=== PATIENT | male | born 1935 | race Caucasian/White ===

== ENCOUNTER → 2018-02-23 | Outpatient (CLI) | payer MEDICARE, OTHER ==
[~2018-02-23] MED LIST: BAYER CHEWABLE81 MG PO; COZAAR 25 MG TA25 M1 PO; FLONASE 0.05%50 MCG NASAL; GLUCOPHAGE XR500 MG PO; IMDUR 30 MG TAB30 M1 PO; LASIX 40 MG TAB40 M2 PO; LESCOL XL80 MG; LEVAQUIN 750 M750 MG PO; LEVEMIR SUBQ; LEVOCETIRIZINE D5 MG PO; LISINOPRIL20 MG PO; LIVALO2 MG PO; LOPRESSOR25 PO; METFORMIN HCL500 M2 PO; NITROSTAT0.4 M1 SL; OCUFLOX10 ML OTIC; PROTONIX40 M1 PO; SERTRALINE HCL100 MG; SINGULAIR 10 MG10 M1 PO; TOPROL XL50 MG PO; TRADJENTA5 MG PO; TYLENOL EXTRA500 MG; VICODIN 5-5001 EACH PO; ZOFRAN ODT4 MG DISSOLVE; ZOLOFT25 MG PO
== END ==
LOC: M.ULTRA 10:55
DX: N18.3 Chronic kidney disease, stage 3 (moderate) (principal); E78.5 Hyperlipidemia, unspecified; I25.10 Atherosclerotic heart disease of native coronary artery without angina pectoris

== ENCOUNTER 2018-04-20 14:38 | Inpatient (IN) | payer MEDICARE, OTHER ==
[~2018-04-20] VITALS: Ht 167.6 cm; Wt 64.0 kg
[~2018-04-20 14:38] MED LIST changes: -LASIX 40 MG TAB40 M2 PO; -LEVAQUIN 750 M750 MG PO; -LEVEMIR SUBQ; -PROTONIX40 M1 PO; -SINGULAIR 10 MG10 M1 PO; -TRADJENTA5 MG PO; -ZOFRAN ODT4 MG DISSOLVE
[2018-04-20 14:49] VITALS: BP 162/64
[2018-04-20] MEDS ORDERED: TRADJENTA5 MG PO (14:59)
[2018-04-20] MEDS ORDERED: SINGULAIR 10 MG10 M1 PO (15:00)
[2018-04-20] MEDS ORDERED: PROTONIX40 M1 PO (15:00)
[2018-04-20] MEDS ORDERED: LEVEMIR SUBQ (15:02)
[2018-04-20 15:16] LABS: ANION GAP 7 mmol/L (7-16); BUN 27 mg/dL (7-18); CALCIUM 8.6 mg/dL (8.5-10.1); CHLORIDE 101 mmol/L (98-107); CO2 23 mmol/L (21-32); CREATININE 1.7 mg/dL (0.6-1.3); GLUCOSE 369 mg/dL (70-99); SODIUM 131 mmol/L (136-145); WBC 5.2 thou/uL (4.0-11.0)
[2018-04-20 15:17] LABS: APTT 27.6 Seconds (25.0-31.3); PROTIME 9.9 Seconds (9.20-11.50)
[2018-04-20 15:19] LABS: HEMATOCRIT 33.6 % (42.0-52.0); MCH 32.2 pg (26.0-34.0); MCHC 32.8 g/dL (28.0-37.0); MCV 98.2 fL (80.0-100.0); MPV 10.2 fl. (7.2-11.1); NUCLEATED RBCS 0 /100WBC; PLATELET COUNT* 237 thou/uL (150-400); RBC 3.42 mil/uL (4.50-6.00); RDW-CV 15.5 % (10.5-14.5)
[2018-04-20 15:20] LABS: POTASSIUM 5.9 mmol/L (3.5-5.1)
[2018-04-20 15:27] LABS: ALBUMIN 2.7 g/dL (3.4-5.0); ALKALINE PHOSPHATASE 793 U/L (46-116); NT-PRO BRAIN NAT PEPTIDE 2421 pg/mL (<300); SGOT 129 U/L (15-37); SGPT 153 U/L (30-65); TOTAL BILIRUBIN 8.9 mg/dL (<0.1-1.0); TOTAL PROTEIN 6.7 g/dL (6.4-8.2); TROPONIN-I LEVEL <0.06 ng/mL (<0.06)
[2018-04-20 16:13] LABS: ABSOLUTE BASOPHILS 0.1 thou/uL (0.0-0.2); ABSOLUTE MONOCYTES 0.2 thou/uL (0.0-1.2); ABSOLUTE NEUTROPHILS 3.9 thou/uL (1.6-8.1)
[2018-04-20 16:16] LABS: PLATELET ESTIMATE ADEQUATE
[2018-04-20 16:18] LABS: URINE BLOOD NEGATIVE (Negative); URINE CLARITY CLEAR; URINE COLOR YELLOW; URINE GLUCOSE-RANDOM 3+ (Negative); URINE KETONES NEGATIVE (Negative); URINE LEUKOCYTES-REFLEX NEGATIVE (Negative); URINE NITRITE-REFLEX NEGATIVE (Negative); URINE PROTEIN NEGATIVE (Negative)
[2018-04-20 16:19] LABS: ICTOTEST (BILI CONFIRMATORY) Positive (Negative); URINE BILIRUBIN 2+ (Negative)
[2018-04-20 17:45] VITALS: BP 157/48
[2018-04-20 18:10] VITALS: BP 162/57
[2018-04-20 20:00] VITALS: BP 138/52
[2018-04-21 04:09] LABS: ABSOLUTE BASOPHILS 0.1 thou/uL (0.0-0.2); BASOPHILS 0.9 %; EOSINOPHILS 0.4 %; HEMOGLOBIN 10.3 gm/dL (14.0-18.0); MPV 9.1 fl. (7.2-11.1); NUCLEATED RBCS 0 /100WBC; RBC 3.22 mil/uL (4.50-6.00)
[2018-04-21 04:11] LABS: ABSOLUTE LYMPHOCYTES 3.9 thou/uL (0.8-5.3); ABSOLUTE MONOCYTES 0.2 thou/uL (0.0-1.2); ABSOLUTE NEUTROPHILS 1.6 thou/uL (1.6-8.1); HEMATOCRIT 30.8 % (42.0-52.0); LYMPHOCYTES 68.3 %; MCHC 33.5 g/dL (28.0-37.0); MCV 95.6 fL (80.0-100.0); MONOCYTES 3.1 %; PLATELET COUNT* 213 thou/uL (150-400); POLYS 27.3 %; RDW-CV 15.1 % (10.5-14.5); WBC 5.8 thou/uL (4.0-11.0)
[2018-04-21 04:31] LABS: CALCIUM 8.7 mg/dL (8.5-10.1); CREATININE 1.6 mg/dL (0.6-1.3); POTASSIUM 5.3 mmol/L (3.5-5.1)
[2018-04-21 08:15] VITALS: BP 150/58
[2018-04-21 09:06] LABS: ALBUMIN 2.5 g/dL (3.4-5.0); DIRECT BILIRUBIN 6.6 mg/dL (<0.1-0.3); TOTAL BILIRUBIN 7.6 mg/dL (<0.1-1.0); TOTAL PROTEIN 5.4 g/dL (6.4-8.2)
--- NOTE | 2018-04-21 10:52 | EKG ---
[place] [address] ELECTROCARDIOGRAM REPORT Name: OSIEL HUSSEIN Room: [address] ADM IN [facility]#: [id number] Admission: 04/20/18 Attend Phys: Yeison Jung MD Discharge: Date of : 33 Report #: [id number] THIS REPORT FOR: //name// [facility] ED Test Date: 2018-04-20 Test Time: 14:52:57 Pat Name: OSIEL HUSSEIN Department: Room: [facility] Gender: Arts [employer] Sciences Dean: Elizabeth TERRY : 1935 Requested By: Taco Parsons Order Number: [id number] MD: Live Fitzgerald Measurements Intervals [place] Rate: 64 P: -5 MD: 154 QRS: 19 QRSD: 95 T: 88 QT: 410 QTc: 423 Interpretive Statements Sinus rhythm Anterior infarct, old Minimal ST depression, lateral leads Compared to ECG 10/30/2014 04:01:01 Myocardial infarct finding now present Left ventricular hypertrophy no longer present ST (T wave) deviation still present Electronically Signed On 04-21-2018 10:51:53 CDT by Live Fitzgerald [email or web address] <ELECTRONICALLY SIGNED> By: Live Fitzgerald MD, [facility] 04/21/18 1051 1452 1452 Live Fitzgerald MD, [facility] /EPI
[2018-04-21 16:47] VITALS: BP 172/72
[2018-04-21 20:00] VITALS: BP 163/63
[2018-04-22 05:00] LABS: ABSOLUTE NEUTROPHILS 1.5 thou/uL (1.6-8.1); BASOPHILS 0.4 %; HEMOGLOBIN 10.8 gm/dL (14.0-18.0); RBC 3.36 mil/uL (4.50-6.00)
[2018-04-22 05:03] LABS: ABSOLUTE LYMPHOCYTES 3.3 thou/uL (0.8-5.3); ABSOLUTE MONOCYTES 0.2 thou/uL (0.0-1.2); EOSINOPHILS 0.3 %; HEMATOCRIT 31.8 % (42.0-52.0); MCH 32.2 pg (26.0-34.0); MCHC 34.1 g/dL (28.0-37.0); MCV 94.6 fL (80.0-100.0); MONOCYTES 3.9 %; MPV 9.9 fl. (7.2-11.1); NUCLEATED RBCS 0 /100WBC; PLATELET COUNT* 212 thou/uL (150-400); POLYS 30.4 %; RDW-CV 15.3 % (10.5-14.5)
[2018-04-22 05:37] LABS: ALBUMIN 2.5 g/dL (3.4-5.0); CALCIUM 8.9 mg/dL (8.5-10.1); CREATININE 1.6 mg/dL (0.6-1.3); POTASSIUM 5.2 mmol/L (3.5-5.1); TOTAL PROTEIN 5.9 g/dL (6.4-8.2)
[2018-04-22 07:55] VITALS: BP 158/64
[2018-04-22 08:51] VITALS: BP 158/64
[2018-04-22 16:00] VITALS: BP 150/58
[2018-04-22 19:40] VITALS: BP 135/57
[2018-04-23 04:18] LABS: HEMATOCRIT 30.8 % (42.0-52.0); HEMOGLOBIN 10.2 gm/dL (14.0-18.0); MCH 32.1 pg (26.0-34.0); MCHC 33.2 g/dL (28.0-37.0); MCV 96.6 fL (80.0-100.0); MPV 9.6 fl. (7.2-11.1); RBC 3.19 mil/uL (4.50-6.00); WBC 5.4 thou/uL (4.0-11.0)
[2018-04-23 04:46] LABS: ALBUMIN 2.5 g/dL (3.4-5.0); CALCIUM 8.6 mg/dL (8.5-10.1); CREATININE 1.8 mg/dL (0.6-1.3); POTASSIUM 4.9 mmol/L (3.5-5.1); TOTAL BILIRUBIN 4.5 mg/dL (<0.1-1.0); TOTAL PROTEIN 5.8 g/dL (6.4-8.2)
[2018-04-23 08:00] VITALS: BP 142/61
[2018-04-23 16:00] VITALS: BP 110/56
[2018-04-23 20:00] VITALS: BP 166/61
[2018-04-24 03:52] LABS: HEMATOCRIT 31.5 % (42.0-52.0); HEMOGLOBIN 10.1 gm/dL (14.0-18.0); MCH 31.6 pg (26.0-34.0); MCHC 32.2 g/dL (28.0-37.0); MCV 98.1 fL (80.0-100.0); MPV 9.8 fl. (7.2-11.1); RBC 3.21 mil/uL (4.50-6.00); RDW-CV 15.2 % (10.5-14.5); WBC 5.6 thou/uL (4.0-11.0)
[2018-04-24 04:00] VITALS: BP 160/64
[2018-04-24 04:17] LABS: ALBUMIN 2.6 g/dL (3.4-5.0); CALCIUM 8.3 mg/dL (8.5-10.1); CREATININE 1.7 mg/dL (0.6-1.3); MAGNESIUM 1.7 mg/dL (1.8-2.4); POTASSIUM 4.6 mmol/L (3.5-5.1); TOTAL BILIRUBIN 3.6 mg/dL (<0.1-1.0); TOTAL PROTEIN 5.9 g/dL (6.4-8.2)
[2018-04-24 08:45] VITALS: BP 127/53
[2018-04-24 14:15] VITALS: BP 127/53
[2018-04-24 15:54] VITALS: BP 127/53
--- NOTE | 2018-04-26 11:05 | CON ---
[address] [address] CONSULTATION Name: OSIEL HUSSEIN Room: [address] IN ..#: [id number] Admission: 04/20/18 Attend Phys: Yeison Jung MD Discharge: 04/24/18 Date of : 34 Report #: [id number] THIS REPORT FOR: //name// CC: Yeison Jung [facility] DATE OF SERVICE: 04/24/2018 REQUESTING PHYSICIAN: Austin Delacruz MD REASON FOR CONSULTATION: Assist in abnormal renal function. HISTORY OF PRESENT ILLNESS: The patient is an 83-year-old gentleman, with medical history significant for chronic kidney disease stage III, follows with my partner, Dr. Mccarty. His creatinine is 1.7. This is his baseline. He presents to the hospital with complaints of jaundice. He was seen by Dr. Cerda. Dr. Cerda' assessment was obstructive jaundice, unclear etiology. Plan was arrange outpatient EGD with EUS. The patient apparently is not a surgical candidate. In case if he needs Whipple procedure due to his abnormal heart condition. From my standpoint, he is low risk for worsening of renal function with the procedure. So from the renal standpoint, there is no contraindication to the surgery. PAST MEDICAL HISTORY: 1. Chronic kidney disease stage 3. 2. Hypertension. 3. Diabetes mellitus type 2. 4. Anemia. FAMILY HISTORY: Noncontributory. SOCIAL HISTORY: No tobacco or alcohol abuse. MEDICATIONS: Reviewed. He is on losartan, aspirin, metoprolol from my standpoint. REVIEW OF SYSTEMS: Positive for the jaundice, which actually resolved. He feels better now. No shortness of breath, no chest pain, no nausea, no vomiting. PHYSICAL EXAMINATION: GENERAL: Awake, alert, and oriented. VITAL SIGNS: Blood pressure 127/53, heart rate 71, afebrile. HEENT: Pupils are round. NECK: Supple. LUNGS: Clear [place] [address] CONSULTATION Name: OSIEL HUSSEIN Room: [address] IN [facility].#: [id number] Admission: 04/20/18 Attend Phys: Yeison Jung MD Discharge: 04/24/18 Date of : 34 Report #: [id number] ABDOMEN: Soft. LABORATORY DATA: Creatinine is 1.7, which is his baseline. ASSESSMENT AND PLAN: The patient is an 83-year-old gentleman admitted with obstructive jaundice, improved now. Followed by Dr. Cerda. Dr. Cerda recommended outpatient EGD with EUS. From my standpoint, he does have chronic kidney disease stage 3. Renal function are stable. His renal function is not a contraindication to EUS. From the standpoint of the possible Whipple procedure, apparently, he is not a candidate for that due to his heart condition. Thank you very much for asking my opinion on chronic kidney disease. The patient could be discharged home. I will sign off. <ELECTRONICALLY SIGNED> By: Og Alicia MD 04/26/18 1105 1209 1519Alexrachna Alicia MD /nt
--- NOTE | 2018-05-20 07:46 | PATH ---
[address] [address] PATHOLOGY RPT PROCEDURE Name: JOVITAOSIEL Stiles Room: [address] IN [facility]#: [id number] Admission: 04/20/18 Date of : 34 Discharge: 04/24/18 Report #: [id number] Path Case #: [id number] Note [facility] Accession Number: [id number] TESTS RESULT FLAG UNITS REF RANGE LAB Clinician Provided Cytology Information No. of containers..01 Other (Miscellaneous) Source: 01 BILIARY BRUSHING CBD Clinician ICD10: 01 K83.1 N17.9 DIAGNOSIS: [A] 02 BILIARY BRUSHING CBD POSITIVE FOR MALIGNANT CELLS/NON SMALL CELL CARCINOMA. FAVOR ADENOCARCINOMA. SEE COMMENT. COMMENT: REVIEWED WITH DR. EVELYN GOINS WHO AGREES WITH THE DIAGNOSIS. DR. MORENO NOTIFIED AT APPROXIMATELY 1430 ON 04/25/2018. Signed out by: 02 Javan Marti MD, Pathologist NPI- [id number] Performed by: 01 Nelson Goldberg, Hvac Refrigeration Technician ([facility]) FLAG LEGEND: L-Low Normal,H-High Normal,LL-Alert Low,HH-Alert High <-Panic Low,>-Panic High,A-Abnormal,AA-Critical Abnormal Performed at: [address] [place] [address] Wayne Cortez MD, [address] [place] [address] [facility], [place] [address] Javan Marti MD, Specimen Comment: A duplicate report has been generated due to demographic updates. Performed at: [address], [place], [place] [id number] MD Wayne Cortez MD Phone: [phone]
== END 2018-04-24 17:02 | disposition home health service (06) | DRG 444 ==
LOC: M.ERS 14:38 → M.TBA-ER 16:23 → M.ORTHSURG 16:23
PROVIDERS: Family Medicine; Internal Medicine Gastroenterology; ADMIT Internal Medicine
PROC: 0F798DZ Dilation of Common Bile Duct with Intraluminal Device, Via Natural or Artificial Opening Endoscopic (ICD-10-PCS; principal; 2018-04-22)
DX: K83.1 Obstruction of bile duct (principal); E43 Unspecified severe protein-calorie malnutrition; N17.9 Acute kidney failure, unspecified; E87.1 Hypo-osmolality and hyponatremia; K21.9 Gastro-esophageal reflux disease without esophagitis; E78.5 Hyperlipidemia, unspecified; E11.40 Type 2 diabetes mellitus with diabetic neuropathy, unspecified; I12.9 Hypertensive chronic kidney disease with stage 1 through stage 4 chronic kidney disease, or unspecified chronic kidney disease; N18.3 Chronic kidney disease, stage 3 (moderate); E11.22 Type 2 diabetes mellitus with diabetic chronic kidney disease; E87.5 Hyperkalemia; I80.8 Phlebitis and thrombophlebitis of other sites; I25.10 Atherosclerotic heart disease of native coronary artery without angina pectoris; F32.9 Major depressive disorder, single episode, unspecified; Z86.73 Personal history of transient ischemic attack (TIA), and cerebral infarction without residual deficits; Z95.1 Presence of aortocoronary bypass graft; Z79.4 Long term (current) use of insulin; Z79.51 Long term (current) use of inhaled steroids; Z79.82 Long term (current) use of aspirin; Z79.899 Other long term (current) drug therapy; Z88.8 Allergy status to other drugs, medicaments and biological substances; Z91.013 Allergy to seafood

== ENCOUNTER 2018-05-14 14:28 | Inpatient (IN) | payer MEDICARE, OTHER ==
[~2018-05-14] VITALS: Ht 167.6 cm; Wt 66.2 kg
[~2018-05-14 14:28] MED LIST changes: +LEVEMIR SUBQ; +PROTONIX40 M1 PO; +SINGULAIR 10 MG10 M1 PO; +TRADJENTA5 MG PO
[2018-05-14 14:40] VITALS: BP 137/49
[2018-05-14] MEDS ORDERED: ZOFRAN ODT4 MG DISSOLVE (14:48)
[2018-05-14 15:11] LABS: ABSOLUTE BASOPHILS 0.1 thou/uL (0.0-0.2); ABSOLUTE LYMPHOCYTES 0.8 thou/uL (0.8-5.3); ABSOLUTE MONOCYTES 0.6 thou/uL (0.0-1.2); ABSOLUTE NEUTROPHILS 4.8 thou/uL (1.6-8.1); BASOPHILS 0.8 %; EOSINOPHILS 0.5 %; HEMATOCRIT 29.4 % (42.0-52.0); HEMOGLOBIN 10.2 gm/dL (14.0-18.0); LYMPHOCYTES 13.1 %; MCH 33.9 pg (26.0-34.0); MCHC 34.7 g/dL (28.0-37.0); MCV 97.8 fL (80.0-100.0); MONOCYTES 8.9 %; MPV 8.4 fl. (7.2-11.1); NUCLEATED RBCS 0 /100WBC; PLATELET COUNT* 206 thou/uL (150-400); POLYS 76.7 %; RBC 3.01 mil/uL (4.50-6.00); RDW-CV 15.7 % (10.5-14.5); WBC 6.3 thou/uL (4.0-11.0)
[2018-05-14 15:21] LABS: APTT 28.2 Seconds (25.0-31.3); INR 1.1; PROTIME 11.4 Seconds (9.20-11.50)
[2018-05-14 15:29] LABS: CALCIUM 7.9 mg/dL (8.5-10.1); CREATININE 2.1 mg/dL (0.6-1.3); POTASSIUM 5.1 mmol/L (3.5-5.1)
[2018-05-14 15:46] LABS: ALBUMIN 3.2 g/dL (3.4-5.0); TOTAL BILIRUBIN 1.6 mg/dL (<0.1-1.0); TOTAL PROTEIN 6.5 g/dL (6.4-8.2); TROPONIN-I LEVEL 0.23 ng/mL (<0.06)
[2018-05-14 17:19] VITALS: BP 138/68
[2018-05-14 18:00] VITALS: BP 149/67
[2018-05-14 20:00] VITALS: BP 132/65
[2018-05-15] VITALS: BP 121/55
[2018-05-15 04:00] VITALS: BP 125/70
[2018-05-15 04:50] LABS: HEMATOCRIT 28.6 % (42.0-52.0); MCH 34.1 pg (26.0-34.0); MCV 97.4 fL (80.0-100.0); MPV 8.7 fl. (7.2-11.1); RBC 2.94 mil/uL (4.50-6.00); RDW-CV 15.6 % (10.5-14.5); WBC 3.7 thou/uL (4.0-11.0)
[2018-05-15 05:13] LABS: CALCIUM 7.9 mg/dL (8.5-10.1); CREATININE 2.5 mg/dL (0.6-1.3); TROPONIN-I LEVEL 0.17 ng/mL (<0.06)
[2018-05-15 08:00] VITALS: BP 118/61
--- NOTE | 2018-05-15 10:59 | EKG ---
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 ST (T wave) deviation no longer present Electronically Signed On 05-15-2018 10:59:11 CDT by Regino Gillespie [email or web address] <ELECTRONICALLY SIGNED> By: Simeon Gillespie MD, [facility] 05/15/18 1059 1438 1438 Simeon Gillespie MD, [facility] /EPI
[2018-05-15 12:00] VITALS: BP 110/59
[2018-05-15 16:14] VITALS: BP 116/58
[2018-05-15 20:00] VITALS: BP 110/54
[2018-05-16] VITALS: BP 91/41
[2018-05-16 04:00] VITALS: BP 115/82
[2018-05-16 05:04] LABS: HEMATOCRIT 30.2 % (42.0-52.0); HEMOGLOBIN 10.5 gm/dL (14.0-18.0); MCH 33.8 pg (26.0-34.0); MCHC 34.8 g/dL (28.0-37.0); MCV 97.2 fL (80.0-100.0); RBC 3.11 mil/uL (4.50-6.00); RDW-CV 15.5 % (10.5-14.5); WBC 7.9 thou/uL (4.0-11.0)
[2018-05-16 05:30] LABS: CALCIUM 8.4 mg/dL (8.5-10.1); MAGNESIUM 1.9 mg/dL (1.8-2.4); POTASSIUM 4.2 mmol/L (3.5-5.1); TROPONIN-I LEVEL 0.19 ng/mL (<0.06)
[2018-05-16 08:00] VITALS: BP 114/58
--- NOTE | 2018-05-16 10:26 | CON ---
[address] [address] CONSULTATION Name: OSIEL HUSSEIN Room: [address] IN [facility].#: [id number] Admission: 05/14/18 Attend Phys: Austin Delacruz, Discharge: Date of : 34 Report #: [id number] THIS REPORT FOR: //name// CC: Jose Delacruz REASON FOR CONSULTATION: Pleural effusion. 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 He is status post stents. Also, he has history of CHF. Apparently had issues with bilateral leg edema during the last hospitalization. He presented to the ER yesterday and was admitted with a chief complaint of increasing shortness of breath of 1-day duration. Apparently, he also noted to have gained some weight. He has history of dizziness and lightheadedness. He has history of coronary artery disease. He denied any chest pain, vomiting, dizziness, lightheadedness. Also, there is a mention of history of congestive heart failure and has recurred. His last ejection fraction in this hospital was 60% back in 2015 with a grade 1 diastolic dysfunction. He told me he smoked for a few years when he was in his 20s, but he does not smoke anymore. He does not have history of lung disease; he is not on any oxygen at all. He was admitted to the hospital. His chest x-ray showed signs of vascular congestion and bilateral pleural effusion with elevated BNP. He denied any sick contacts. He denied any fever. He denied any nasal discharge or obstruction. He denied any sore throat. ALLERGIES: NIACIN, SHRIMP AND STATIN. HOME MEDICATIONS: He is on aspirin, Flonase, metoprolol, losartan, Singulair, pantoprazole, Zofran, sertraline. PAST MEDICAL HISTORY: Hyperlipidemia, neuropathy, gastroesophageal reflux disease, hypertension, depression, diabetes mellitus, history of stroke going back to 2013. At one point, he had a feeding tube. Also, recent diagnosis of pancreatic duct cancer in 04/2018 with a stent placement. PAST SURGICAL HISTORY: History of coronary artery bypass grafting, cardiac catheterization, bone marrow biopsy, hernia repair and pancreatic duct biopsy with multiple EGDs. SOCIAL HISTORY: Does not smoke, does not drink alcohol, does not abuse drugs, although he has history of smoking In his 20s, quit long time ago. FAMILY HISTORY: Reviewed with the patient, noncontributory. REVIEW OF SYSTEMS: Positive for weakness, although [place] [address] CONSULTATION Name: OSIEL HUSSEIN Room: [address]#: [id number] Admission: 05/14/18 Attend Phys: Austin Delacruz, Discharge: Date of : 34 Report #: [id number] chills. He had some increase in his weight and lower extremity edema. He has shortness of breath. He had no cough or wheezes. A 14-point system review was done the patient and negative other than as mentioned above. PHYSICAL EXAMINATION: VITAL SIGNS: He was on room air with saturation more than 90%, blood pressure 121/55, breathing 17 times a minute, pulse rate of 73, temperature 36.9. GENERAL APPEARANCE: Awake, alert, oriented, speaks in full sentences, no distress. HEENT: Normocephalic, atraumatic. Pupils reactive to light, not pale. I did not notice jaundice. External ear looks healthy and normal. NECK: Supple. CHEST: Diminished air movement at the bases. No wheezes, no crackles. HEART: S1, S2, no murmur. ABDOMEN: Soft, lax, nontender. No masses felt, no rigidity, no rebound. LOWER EXTREMITIES: Trace edema noted equally bilaterally. No calf tenderness. SKIN: Normal for age and race. No rash. PSYCHIATRIC: Mood and affect appropriate, slightly anxious. NEUROLOGIC: Moving 4 extremities spontaneously. No focal weakness. LYMPHATICS: No ____. LABORATORY DATA: His white blood count is 6.3, hemoglobin 10.2, platelet of 206. His creatinine is 2.5 compared to 2.1 yesterday. His potassium is 5, sodium 136. His BNP elevated. His V/Q scan, low probability for PE. His chest x-ray showed bilateral pleural effusion, possible atelectasis. CURRENT MEDICATIONS: Reviewed including nebulization treatment, Singulair and IV Lasix in addition to Zosyn among others. IMPRESSION: 1. Dyspnea. 2. History of congestive heart failure. 3. Lbebw-kw-audnyfh renal failure. 4. History of pancreatic cancer. 5. Suspected congestive heart failure. PLAN: The patient's findings of lower extremity edema, weight gain, responding to Lasix and bilateral pleural effusion suggests likely he has fluid overload related to his CHF. Currently, he is being diuresed with Lasix. Hopefully, that would help with the overall fluid status and improve the bilateral pleural effusion. However, if it becomes difficult to diurese him because of the kidney issues, worsening creatinine or the fluid does not respond to diuresis, we can consider thoracentesis. I am going to order a chest x-ray for him PA and lateral for tomorrow morning and decide accordingly. [address] [place] [address] CONSULTATION Name: OSIEL HUSSEIN Room: [address] IN [facility]#: [id number] Admission: 05/14/18 Attend Phys: Austin Delacruz, Discharge: Date of : 34 Report #: [id number] Thank you for the consult. Discussed with the patient. <ELECTRONICALLY SIGNED> By: See Ramirez MD 05/16/18 1026 0756 1204Dvenessa Abraham MD /nt
[2018-05-16 11:54] VITALS: BP 115/70
--- NOTE | 2018-05-16 13:28 | 2DMMODE ---
[place] [address] 2 D/M-MODE ECHOCARDIOGRAM Name: OSIEL HUSSEIN Room: [address] IN [facility]#: [id number] Admission: 05/14/18 Attend Phys: Austin Ayala Discharge: Date of : 33 Date of Service: 05/16/18 1327 Report #: [id number] THIS REPORT FOR: //name// APPROVED REPORT Study performed: 05/16/2018 10:30:49 EXAM: Comprehensive 2D, Doppler, and color-flow Echocardiogram Patient Location: Bedside BSA: 1.80 HR: 78 bpm BP: 114/58 mmHg Other Information Study Quality: Good Indications Congestive Heart Failure CAD 2D Dimensions LVEF(%): 30.20 (>50%) IVSd: 13.91 (7-11mm) LVOT Diam: 18.47 (18-24mm) LVDd: 50.13 mm PWd: 7.83 (7-11mm) Ascending Ao: 30.66 (22-36mm) LVDs: 42.99 (25-40mm) Aortic Root: 28.07 mm Andrew's LVEF: 30.20 % Volumes Left Atrial Volume (Systole) LA ESV Index: 31.40 mL/m2 Aortic Valve AoV Peak Tyrone.: 1.70 m/s AO Peak Gr.: 11.54 mmHg LVOT Max P.89 mmHg AO Mean Gr.: 6.45 mmHg LVOT Mean P.21 mmHg LVOT Max V: 0.85 m/s AO V2 VTI: 33.53 cm LVOT Mean V: 0.50 m/s APRIL (VTI): 1.28 cm2 LVOT V1 VTI: 16.01 cm AI [place]: 1.75 m/s2 AI PHT: 502.92 [place] [address] 2 D/M-MODE ECHOCARDIOGRAM Name: OSIEL HUSSEIN Room: [address] IN [facility]#: [id number] Admission: 05/14/18 Attend Phys: Austin Ayala Discharge: Date of : 33 Date of Service: 05/16/18 1327 Report #: [id number] E/A Ratio: 1.08 MV Decel. Time: 163.68 ms MV E Max Tyrone.: 0.78 m/s MV PHT: 47.47 ms MVA (PHT): 4.63 cm2 TDI E/Lateral E': 7.09 E/Medial E': 11.14 Medial E' Tyrone.: 0.07 m/s Lateral E' Tyrone.: 0.11 m/s Pulmonary Valve PV Peak Tyrone.: 0.97 m/s PV Peak Gr.: 3.74 mmHg Tricuspid Valve RAP Estimate: 5.00 mmHg TR Peak Gr.: 17.88 mmHg RVSP: 22.88 mmHg PA Pressure: 22.88 mmHg Left Ventricle The left ventricle is normal size. akinesis noted of the mid and distal anteroseptal wall and apex There is normal left ventricular wall thickness. Left ventricular systolic function is moderately decreased. LVEF is 30-35%. Right Ventricle The right ventricle is normal size. The right ventricular systolic function is normal. Atria Left atrium is mildly dilated. The right atrium size is normal. Aortic Valve The Aortic valve is sclerotic. Mild aortic regurgitation. There is no aortic valvular stenosis. Mitral Valve Mitral valve leaflets are mildly thickened. Mild mitral regurgitation. No evidence of mitral valve stenosis. Tricuspid Valve The tricuspid valve is normal in structure. Trace tricuspid [place]itation[place] [address] 2 D/M-MODE ECHOCARDIOGRAM Name: OSIEL HUSSEIN Room: [address] IN [facility]#: [id number] Admission: 05/14/18 Attend Phys: Austin Ayala Discharge: Date of : 33 Date of Service: 05/16/18 1327 Report #: [id number] The pulmonary valve is normal in structure. Trace pulmonic regurgitation. Great Vessels The aortic root is normal in size. IVC is normal in size and collapses with >50% inspiration Pericardium There is no pericardial effusion. <Conclusion> LVEF is 30-35%. Left atrium is mildly dilated. The Aortic valve is sclerotic. akinesis noted of the mid and distal anteroseptal wall and apex <ELECTRONICALLY SIGNED> By: Live Fitzgerald MD, [facility] 05/16/18 1327 26 26 Live Fitzgerald MD, [facility]ACC /INF
[2018-05-16 16:30] VITALS: BP 99/52
[2018-05-16 19:45] VITALS: BP 98/54
[2018-05-16 22:33] LABS: URINE BILIRUBIN NEGATIVE (Negative); URINE BLOOD NEGATIVE (Negative); URINE CLARITY CLEAR; URINE COLOR YELLOW; URINE GLUCOSE-RANDOM NEGATIVE (Negative); URINE KETONES NEGATIVE (Negative); URINE LEUKOCYTES NEGATIVE (Negative); URINE NITRITE NEGATIVE (Negative); URINE PROTEIN NEGATIVE (Negative); URINE UROBILINOGEN 0.2 E.U./dl (0.2-1.0)
[2018-05-17 00:54] VITALS: BP 105/51
[2018-05-17 05:02] VITALS: BP 106/52
[2018-05-17 05:27] LABS: HEMATOCRIT 33.4 % (42.0-52.0); HEMOGLOBIN 11.4 gm/dL (14.0-18.0); MCH 33.4 pg (26.0-34.0); MCHC 34.3 g/dL (28.0-37.0); MCV 97.3 fL (80.0-100.0); MPV 8.2 fl. (7.2-11.1); RBC 3.43 mil/uL (4.50-6.00); RDW-CV 15.6 % (10.5-14.5); WBC 7.8 thou/uL (4.0-11.0)
[2018-05-17 06:06] LABS: CALCIUM 8.1 mg/dL (8.5-10.1); CREATININE 3.6 mg/dL (0.6-1.3); POTASSIUM 4.1 mmol/L (3.5-5.1)
[2018-05-17 08:00] VITALS: BP 101/53
[2018-05-17 10:10] LABS: BODY FLUID LDH 91 IU/L (()); BODY FLUID PROTEIN 2.8 g/dL (())
[2018-05-17 11:56] VITALS: BP 103/51
[2018-05-17 13:19] LABS: SOURCE PLEURAL
[2018-05-17 17:40] VITALS: BP 102/51
[2018-05-17 20:00] VITALS: BP 113/55
[2018-05-18] VITALS: BP 111/61
[2018-05-18 04:00] VITALS: BP 107/57
[2018-05-18 06:18] LABS: CALCIUM 7.9 mg/dL (8.5-10.1)
[2018-05-18 08:00] VITALS: BP 99/54
[2018-05-18 11:49] VITALS: BP 120/53
[2018-05-18 15:37] VITALS: BP 112/55
[2018-05-19 00:30] VITALS: BP 115/57
[2018-05-19 04:30] VITALS: BP 124/65
[2018-05-19 08:00] VITALS: BP 122/58
[2018-05-19] MEDS ORDERED: LASIX 40 MG TAB40 M2 PO (09:58)
[2018-05-19] MEDS ORDERED: LEVAQUIN 750 M750 MG PO (09:59)
[2018-05-19 12:00] VITALS: BP 137/71
--- NOTE | 2018-05-19 14:14 | PATH ---
[address] [address] PATHOLOGY RPT PROCEDURE Name: JOVITAOSIEL Linsey Room: [address]#: [id number] Admission: 05/14/18 Date of : 34 Discharge: 05/19/18 Report #: [id number] Path Case #: [id number] Note [facility] Accession Number: [id number] TESTS RESULT FLAG UNITS REF RANGE LAB Clinician Provided Cytology Information No. of containers..01 Other (Miscellaneous) Source: 01 PLEURAL FLUID Clinician ICD10: 01 I50.9 N17.9 R84.6 DIAGNOSIS: 02 PLEURAL FLUID NEGATIVE FOR MALIGNANT CELLS. MESOTHELIAL CELLS AND FEW, PREDOMINANTLY CHRONIC INFLAMMATORY CELLS. THIS INTERPRETATION INCLUDES EVALUATION OF A CELL BLOCK. Signed out by: 02 Javan Marti MD, Pathologist NPI- [id number] Performed by: Andrew Chavez, Picking Machine Operator Helper ([facility]) Gross description: 01 75ML, YELLOW, CLOUDY /LCS FLAG LEGEND: L-Low Normal,H-High Normal,LL-Alert Low,HH-Alert High <-Panic Low,>-Panic High,A-Abnormal,AA-Critical Abnormal Performed at: [address] [place] [address] Wayne Cortez MD, [address] [place] [address] [address] [place] [address] Javan Marti MD, Specimen Comment: A courtesy copy of this report has been sent to Specimen Comment: [phone]. Specimen Comment: Report sent to Performed at: [address], [place] [id number] MD Wayne Cortez MD Phone: [phone]
--- NOTE | 2018-05-20 13:53 | CON ---
[address] [address] CONSULTATION Name: OSIEL HUSSEIN Room: [address] IN [facility]#: [id number] Admission: 05/14/18 Attend Phys: Austin Delacruz, Discharge: 05/19/18 Date of : 34 Report #: [id number] THIS REPORT FOR: //name// CC: Jose Delacruz DATE OF SERVICE: 05/18/2018 DIAGNOSIS: Common bile duct adenocarcinoma. HISTORY OF PRESENT ILLNESS: The patient is an 83-year-old male who has multiple comorbidities, was admitted because of pleural effusion, which was tapped. Cytology is pending at this point. The patient was seen today. He is feeling significantly better. He is off oxygen. He is breathing on room air. He underwent thoracentesis and a total of 1000 mL was drained. Cytology as mentioned above is still pending. He had a CT scan on 05/14/2018, which showed small to moderate right and small dependent layering pleural effusion. The patient previously was diagnosed with adenocarcinoma based on the brushing of the ERCP; however, the EUS came back negative for any measurable disease or measurable mass. I obtained staging scans, which came back negative for any distant metastases previously. REVIEW OF SYSTEMS: All systems were reviewed; it was negative except the above. PAST MEDICAL HISTORY: Adenocarcinoma, coronary artery disease, dyslipidemia, neuropathy, GERD, diabetes mellitus, previous stroke, chronic kidney disease. PAST SURGICAL HISTORY: CABG, cardiac catheterization, hernia repair. SOCIAL HISTORY: No smoking. No drinking. No alcohol abuse. FAMILY HISTORY: Noncontributory. ALLERGIES: STATINS, NIACIN, AND SHRIMP. MEDICATIONS: Per admission list. PHYSICAL EXAMINATION: VITAL SIGNS: Today, temperature 36.8, pulse 75, respirations 18, blood pressure is 120/53, SpO2 was 97% on room air. GENERAL: The patient was sitting in bed. He was not in acute distress. LUNGS: Clear to auscultation bilaterally. HEART: Regular rate and rhythm, S1, S2 within normal limits. ABDOMEN: Soft, nontender, nondistended, [place] [address] CONSULTATION Name: OSIEL HUSSEIN Room: [address]#: [id number] Admission: 05/14/18 Attend Phys: Austin Delacruz, Discharge: 05/19/18 Date of : 34 Report #: [id number] LABORATORY DATA: Today, WBC 7.8, hemoglobin 11.4, platelets 227. Creatinine is 3.0, lactic acid 1.0, calcium 7.9, bilirubin 1.6, AST 22, ALT 23. IMAGING: As mentioned above. ASSESSMENT AND PLAN: An 83-year-old male who has multiple comorbidities including coronary artery disease, chronic kidney disease and borderline performance status, was diagnosed with adenocarcinoma based on the endoscopic retrograde cholangio-pancreatography brushing of the distal bile duct after he presented with a painless jaundice. EUS and his previous imaging did not reveal any measurable mass of the primary. At this point, I do recommend a multidisciplinary approach; however, the patient is not a candidate for surgery. I discussed this case with Dr. Vahe Martinez, radiation oncologist, and we will evaluate as an outpatient to proceed with radiation alone. I am not sure if the patient is going to be a candidate for concurrent chemotherapy with radiation. <ELECTRONICALLY SIGNED> By: Brandi Robert MD 05/20/18 1353 1252 1825Brandi Robert MD /nt
--- NOTE | 2018-05-22 13:00 | CON ---
[address] [address] CONSULTATION Name: OSIEL HUSSEIN Room: [address] IN [facility].#: [id number] Admission: 05/14/18 Attend Phys: Austin Delacruz, Discharge: 05/19/18 Date of : 33 Report #: [id number] THIS REPORT FOR: //name// CC: Jose Delacruz TYPE OF REPORT: Cardiology consultation. HISTORY OF PRESENT ILLNESS: I was asked by Dr. Delacruz to see this 83-year-old white male in Cardiology consultation for an elevated troponin as well as apparent congestive heart failure with pleural effusions and edema. This unfortunate gentleman does have a history of coronary artery disease and previous coronary artery bypass graft surgery and I believe that was approximately 2009. He most recently was hospitalized a little over a month ago with jaundice and had a plastic stent placed in his bile duct. Subsequently, he was admitted some 3 weeks ago to [place] to have the plastic stent removed and a metal stent placed. He has received quite a bit of IV fluids over the last several weeks. He has pancreatic cancer. Additionally, this man does have a history of chronic kidney disease, insulin-dependent diabetes mellitus, previous CVA, essential hypertension, hypercholesterolemia and left ventricular hypertrophy on an EKG. He developed issues with increasing shortness of breath both with exertion and at rest yesterday. He apparently had gained a pound approximately every other day for the past 2 weeks and developed quite a bit of lower leg edema. He also had a syncopal episode some 3 days ago. He has been weak. Since he had the bile duct stents placed, he is much less jaundiced. His bilirubin yesterday was only 1.6. He denies any chest pain. He did have a mild elevation of troponin. His troponin was 0.23 initially and subsequently was 0.19 and then 0.17 and again 0.17. A BNP yesterday was 19,314 and today is 24,087. He has diuresed with approximately 2500 mL diuresis over the last 24 hours. He is on IV Lasix. Coronary risk factors include a past history of smoking. He quit he states 55 years ago. He does have hypercholesterolemia, but he is sensitive to statins and appears to not be on a cholesterol lowering medication. He does have insulin-dependent diabetes mellitus and high blood pressure. There is family history of coronary artery disease and his brother has coronary artery disease. He has stage 3-4 kidney disease. He does have a history of stroke in the past, called a Wall[place] stroke, he states. He does have pain in his legs when he walks, but is not clearly claudication and may be due to arthritis. He has not had any open or nonhealing wounds. ALLERGIES: Include SHRIMP, STATIN and NIACIN. HOME MEDICATIONS: Include aspirin 81 mg daily, Flonase at bedtime, Levemir insulin 24 units daily, levocetirizine 5 mg at bedtime, linagliptin or Tradjenta 5 mg daily, losartan 25 mg daily, metoprolol 25 mg b.i.d. and he is on the tartrate version, montelukast 10 mg at bedtime, p.r.n. nitroglycerin, pantoprazole 40 mg daily and sertraline [address] [facility] [address] [facility] [place] [address] CONSULTATION Name: OSIEL HUSSEIN Room: M.214-P DIS IN M.R.#: [id number] Admission: 05/14/18 Attend Phys: Austin Delacruz, Discharge: 05/19/18 Date of : 34 Report #: [id number] REVIEW OF SYSTEMS: Positive for weakness, shortness of breath with exercise, passing out last , extremity edema, diabetes, jaundice, cancer involving his bile duct which apparently is pancreatic cancer although I am not sure that it is not just bile duct cancer, seasonal allergies, medical allergies, arthritis, easy bruising, previous cataract surgery, wearing glasses and decreased hearing. FAMILY HISTORY: Remarkable for his brother having coronary artery disease. Otherwise, there is no other significant family history. SOCIAL HISTORY: He is . 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 Does not smoke, drink or use illegal drugs. PHYSICAL EXAMINATION: GENERAL: He presents as well-developed, well-nourished white male, in no acute distress. VITAL SIGNS: Pulse was 79 and regular, blood pressure is 125/70, respirations are 17 and regular and temperature is 98 degrees. HEENT: His head was atraumatic. Eyes clear. NECK: Supple. There is no jugular venous distention or hepatojugular reflux. Thyroid is not enlarged. There is no adenopathy. SKIN: Warm and dry. Mucous membranes are moist. LUNGS: Clear to auscultation and percussion. HEART: Revealed normal first and second heart sound. There is soft S4. There is no S3. There was a 1/6 systolic murmur. There were no rubs, thrills or heaves. PMI is not displaced. Rhythm is regular and the rate was approximately 79. ABDOMEN: Soft, flat and nontender. No palpable masses. No organomegaly. EXTREMITIES: Reveal no cyanosis or clubbing. There was 1-2+ edema in the lower extremities. NEUROLOGICAL: The patient mentated normally, talked normally, moved all extremities normally. RADIOLOGICAL DATA: His chest x-ray showed small bilateral pleural effusions, right greater than left, new from his prior exam and there were bibasilar pulmonary opacities, congestive heart failure or pulmonary edema cannot be excluded. EKG revealed normal sinus rhythm. There was possible left ventricular hypertrophy, but there were some loss of R-wave from V1 through V4 and an old anterior infarct cannot be excluded. IMPRESSION: 1. Congestive heart failure of uncertain type as yet. 2. Pleural effusions. 3. Pancreatic cancer. 4. Elevated troponin, possibly due to a bdg-DN-lwxtsdk elevation myocardial infarction or a distant myocardial infarction[place] [address] CONSULTATION Name: OSIEL HUSSEIN Room: [address]#: [id number] Admission: 05/14/18 Attend Phys: Austin Delacruz, Discharge: 05/19/18 Date of : 34 Report #: [id number] myocardial infarction. 5. Coronary artery disease. 6. Status post coronary artery bypass graft surgery. 7. Chronic kidney disease. 8. Insulin-dependent diabetes mellitus. 9. Previous cerebrovascular accident. 10. Essential hypertension. 11. Hypercholesterolemia. 12. Left ventricular hypertrophy. RECOMMENDATIONS: I would continue diuresing him with Lasix. I would continue his metoprolol but switch it to succinate and check an echo. Recheck a troponin. Recheck a BNP. Get a Lexiscan Cardiolite stress test. Thank you very much for asking me to see the patient. If there are any questions, please feel free to contact me. <ELECTRONICALLY SIGNED> By: Live Glez MD, FACC 05/22/18 1300 [id number]. Regino Gillespie MD, FACC /nt
--- NOTE | 2018-05-25 11:36 | CON ---
[address] [address] CONSULTATION Name: OSIEL HUSSEIN Room: [address] IN [facility]#: [id number] Admission: 05/14/18 Attend Phys: Austin Delacruz, Discharge: 05/19/18 Date of : 34 Report #: [id number] THIS REPORT FOR: //name// CC: Jose Delacruz DATE OF SERVICE: 05/17/2018 REQUESTING PHYSICIAN: Austin Delacruz MD REASON FOR CONSULTATION: Acute kidney injury. HISTORY OF PRESENT ILLNESS: The patient is an 83-year-old gentleman known to me. I saw him in April when he was admitted for acute kidney injury. The patient notes recently diagnosed with pancreatic cancer, was deemed to be not a surgical candidate. Had a stent placed in the pancreatic duct by Dr. Cerda and his jaundice went away. He was supposed to see oncologist and radiation oncologist for possible palliative chemo and radiation. He also has chronic kidney disease stage 3, followed by my partner, Dr. Mccarty. He has a history of diabetes mellitus type 2, hypertension, and coronary artery disease. He presents with complaints of progressive shortness of breath, was found to have pleural effusion. He underwent thoracentesis and feels better. He also was given IV Lasix and his creatinine went up from 2.1-3.6. He is also receiving losartan. PAST MEDICAL HISTORY: As mentioned earlier. SOCIAL HISTORY: No tobacco or alcohol abuse. FAMILY HISTORY: Noncontributory. REVIEW OF SYSTEMS: Positive for weakness, shortness of breath, increased abdominal girth, and increased weight. PHYSICAL EXAMINATION: GENERAL: Awake, alert, oriented and feels better now. VITAL SIGNS: Blood pressure 103/51, heart rate 70, afebrile. HEENT: Pupils are round. NECK: Supple. LUNGS: Decreased air movements at the bases. CARDIOVASCULAR: Regular rate. ABDOMEN: Soft. EXTREMITIES: No edema. LABORATORY DATA: Serum sodium 139, potassium 4.1, chloride 98, [place] [address] CONSULTATION Name: OSIEL HUSSEIN Room: [address]#: [id number] Admission: 05/14/18 Attend Phys: Austin Delacruz, Discharge: 05/19/18 Date of : 34 Report #: [id number], BUN 45, and creatinine 3.6. ASSESSMENT: 1. Acute kidney injury due to over diuresis. 2. Pleural effusion, likely secondary to malignancy. 3. Pancreatic cancer. 4. Chronic kidney disease stage 3. PLAN: 1. I will stop his losartan. 2. Would not diurese him. 3. Follow his labs. The patient is not a dialysis candidate. <ELECTRONICALLY SIGNED> By: Og Alicia MD 05/25/18 1136 1158 [id number] nancy Robin
== END 2018-05-19 13:38 | disposition home or self-care (01) | DRG 177 ==
LOC: M.ERS 14:28 → M.TBA-ER 15:59 → M.2W 15:59
PROVIDERS: Family Medicine; Internal Medicine; Internal Medicine Nephrology; Internal Medicine Pulmonary Disease; ADMIT Family Medicine
PROC: 0W993ZZ Drainage of Right Pleural Cavity, Percutaneous Approach (ICD-10-PCS; principal; 2018-05-16)
DX: J15.6 Pneumonia due to other Gram-negative bacteria (principal); I50.23 Acute on chronic systolic (congestive) heart failure; N17.0 Acute kidney failure with tubular necrosis; K83.1 Obstruction of bile duct; J91.0 Malignant pleural effusion; I13.0 Hypertensive heart and chronic kidney disease with heart failure and stage 1 through stage 4 chronic kidney disease, or unspecified chronic kidney disease; E44.0 Moderate protein-calorie malnutrition; C25.3 Malignant neoplasm of pancreatic duct; K21.9 Gastro-esophageal reflux disease without esophagitis; E78.5 Hyperlipidemia, unspecified; E11.40 Type 2 diabetes mellitus with diabetic neuropathy, unspecified; F32.9 Major depressive disorder, single episode, unspecified; I25.10 Atherosclerotic heart disease of native coronary artery without angina pectoris; E11.22 Type 2 diabetes mellitus with diabetic chronic kidney disease; E78.00 Pure hypercholesterolemia, unspecified; T50.2X5A Adverse effect of carbonic-anhydrase inhibitors, benzothiadiazides and other diuretics, initial encounter; N18.3 Chronic kidney disease, stage 3 (moderate); Y92.89 Other specified places as the place of occurrence of the external cause; Z68.23 Body mass index [BMI] 23.0-23.9, adult; Z95.1 Presence of aortocoronary bypass graft; Z86.73 Personal history of transient ischemic attack (TIA), and cerebral infarction without residual deficits; Z79.51 Long term (current) use of inhaled steroids; Z79.82 Long term (current) use of aspirin; Z79.899 Other long term (current) drug therapy; Z88.8 Allergy status to other drugs, medicaments and biological substances; Z91.013 Allergy to seafood; Z82.49 Family history of ischemic heart disease and other diseases of the circulatory system

== ENCOUNTER 2018-06-07 12:09 | Emergency (ER) | payer MEDICARE, OTHER ==
[~2018-06-07] VITALS: Ht 165.1 cm; Wt 67.1 kg
[~2018-06-07 12:09] MED LIST changes: +LASIX 40 MG TAB40 M2 PO; +LEVAQUIN 750 M750 MG PO; +ZOFRAN ODT4 MG DISSOLVE
[2018-06-07] MEDS ORDERED: LEVEMIR SUBQ (12:18)
[2018-06-07 12:37] LABS: ABSOLUTE BASOPHILS 0.1 thou/uL (0.0-0.2); ABSOLUTE EOSINOPHILS 0.1 thou/uL (0.0-0.7); ABSOLUTE LYMPHOCYTES 0.9 thou/uL (0.8-5.3); ABSOLUTE MONOCYTES 0.4 thou/uL (0.0-1.2); ABSOLUTE NEUTROPHILS 4.2 thou/uL (1.6-8.1); BASOPHILS 0.9 %; EOSINOPHILS 1.2 %; HEMATOCRIT 39.2 % (42.0-52.0); LYMPHOCYTES 15.3 %; MCH 32.5 pg (26.0-34.0); MCHC 33.3 g/dL (28.0-37.0); MCV 97.7 fL (80.0-100.0); MONOCYTES 7.7 %; MPV 7.7 fl. (7.2-11.1); NUCLEATED RBCS 0 /100WBC; PLATELET COUNT* 243 thou/uL (150-400); POLYS 74.9 %; RBC 4.02 mil/uL (4.50-6.00); RDW-CV 13.8 % (10.5-14.5); WBC 5.7 thou/uL (4.0-11.0)
[2018-06-07 12:45] LABS: CREATININE 1.9 mg/dL (0.6-1.3); POTASSIUM 4.7 mmol/L (3.5-5.1)
[2018-06-07 12:49] LABS: ALBUMIN 3.5 g/dL (3.4-5.0); TOTAL BILIRUBIN 0.9 mg/dL (<0.1-1.0); TOTAL PROTEIN 6.9 g/dL (6.4-8.2)
[2018-06-07 13:52] LABS: APTT 28.6 Seconds (25.0-31.3); INR 1.1
[2018-06-07 15:55] VITALS: BP 127/60
== END 2018-06-07 15:56 | disposition home or self-care (01) ==
LOC: M.ERS 12:09
PROVIDERS: Emergency Medicine
DX: J90 Pleural effusion, not elsewhere classified (principal); K21.9 Gastro-esophageal reflux disease without esophagitis; I10 Essential (primary) hypertension; E78.5 Hyperlipidemia, unspecified; E11.40 Type 2 diabetes mellitus with diabetic neuropathy, unspecified; F32.9 Major depressive disorder, single episode, unspecified; Z79.4 Long term (current) use of insulin; Z88.8 Allergy status to other drugs, medicaments and biological substances; Z91.013 Allergy to seafood; Z88.6 Allergy status to analgesic agent; Z86.73 Personal history of transient ischemic attack (TIA), and cerebral infarction without residual deficits

== ENCOUNTER 2018-12-30 11:35 | Inpatient (IN) | payer MEDICARE, OTHER ==
[~2018-12-30] VITALS: Ht 165.1 cm; Wt 73.5 kg
--- NOTE | ~2018-12-30 | CON ---
[address] [address] CONSULTATION Name: OSIEL HUSSEIN Room: [address] IN ..#: [id number] Admission: 12/30/18 Attend Phys: Yeison Jung MD Discharge: Date of : 34 Report #: [id number] THIS REPORT FOR: //name// CC: Yeison Chase DATE OF SERVICE: 12/31/2018 INPATIENT CONSULTATION REQUESTING PHYSICIAN: Dr. Jung. PEANUT ROASTER: Dr. Fitzgerald. HISTORY OF PRESENT ILLNESS: He presents with increasing shortness of breath, weakness and he had gotten an episode of diarrhea on Imdur that was prescribed as an outpatient. The GI related symptoms have resolved, but he is still short of breath and he has chronic right-sided pleural effusions requiring thoracentesis. He denies chest pain or pressure at this time. PAST MEDICAL HISTORY: He has an ischemic cardiomyopathy with a known EF in the 30-35% range. She has [place] vessel coronary artery disease, prior bypass surgeries. Most recent cardiac catheterization demonstrated patent FARIA to LAD and vein graft to marginal and patent vein graft to RCA. He does have disease at the insertion of his anastomosis though distally. Medical therapy was recommended as he has a well collateralized vessel in his right coronary artery. He has chronic kidney disease, remote stroke and active pancreatic cancer. HOME MEDICATIONS: Include Lasix 40 mg; insulin; Imdur as noted above, had been discontinued; Toprol-XL 25 mg daily; baby aspirin. FAMILY HISTORY: Positive for heart disease. SOCIAL HISTORY: Nonsmoker, he quit in 1996. Minimal alcohol. ALLERGIES: TO NIACIN AND THE AFOREMENTIONED IMDUR AND STATINS. REVIEW OF SYSTEMS: GASTROINTESTINAL: Positive nausea, diarrhea. CARDIOVASCULAR: No chest pain. Positive dyspnea. No [place]op[place] [address] CONSULTATION Name: OSIEL HUSSEIN Room: [address]#: [id number] Admission: 12/30/18 Attend Phys: Yeison Jung MD Discharge: Date of : 34 Report #: [id number] MUSCULOSKELETAL: No recent falls: Positive for pancreatic cancer. GENITOURINARY: No dysuria or hematuria. EARS, NOSE, THROAT AND MOUTH: No decreased hearing, bleeding from nose. CENTRAL NERVOUS SYSTEM: No seizures. PHYSICAL EXAMINATION: VITAL SIGNS: Blood pressure is 116/66, pulse is 91, O2 sat is 95% on 2 liters. GENERAL: Thin elderly male, who is alert, in no apparent distress. HEENT: Eyes: EOMs intact. No facial asymmetry. NECK: Supple. No jugular venous distention. CARDIOVASCULAR: Regular. I could hear faint apical murmur. LUNGS: Diminished breath sounds at right base with otherwise clear to auscultation. LABORATORY DATA: Chest x-ray reveals a right-sided pleural effusion, moderate sized. Hemoglobin 11.9; white blood count is 4.0; platelet count 129,000. Sodium is 143, potassium 4.3, BUN is 30, creatinine is 2.5. Troponin I was 0.07. CRP is 14.3. IMPRESSION: 1. Chronic right-sided pleural effusion. 2. Chronic ischemic cardiomyopathy, chronic systolic dysfunction. 3. Coronary artery disease. 4. Chronic kidney disease. 5. Pancreatic cancer. PLAN: At this point in time, given his kidney disease, I think he would benefit from another thoracentesis and leaving him on his Lasix 40 mg daily. From a cardiovascular standpoint, he is asymptomatic. By: 1122 [id number] Ellis MD, FACC /nt
[~2018-12-30 11:35] MED LIST changes: +CEFUROXIME500 MG PO; +HUMALOG100 UNIT/1 SUBQ; +TOPROL XL25 MG PO; -TYLENOL EXTRA500 MG; +TYLENOL EXTRA500 MG PO
[2018-12-30 11:41] VITALS: BP 126/79
[2018-12-30 12:01] LABS: ABSOLUTE EOSINOPHILS 0.1 thou/uL (0.0-0.7); ABSOLUTE LYMPHOCYTES 0.6 thou/uL (0.8-5.3); ABSOLUTE MONOCYTES 0.5 thou/uL (0.0-1.2); ABSOLUTE NEUTROPHILS 4.4 thou/uL (1.6-8.1); BASOPHILS 0.5 %; EOSINOPHILS 1.2 %; HEMATOCRIT 40.5 % (42.0-52.0); HEMOGLOBIN 13.3 gm/dL (14.0-18.0); LYMPHOCYTES 10.2 %; MCH 30.8 pg (26.0-34.0); MCHC 32.9 g/dL (28.0-37.0); MCV 93.8 fL (80.0-100.0); MONOCYTES 8.2 %; NUCLEATED RBCS 0 /100WBC; PLATELET COUNT* 183 thou/uL (150-400); POLYS 79.9 %; RBC 4.32 mil/uL (4.50-6.00); RDW-CV 14.6 % (10.5-14.5); WBC 5.5 thou/uL (4.0-11.0)
[2018-12-30 12:05] LABS: INR 1.1; PROTIME 11.5 Seconds (9.20-11.50)
[2018-12-30 12:16] LABS: ANION GAP 13 mmol/L (7-16); BUN 29 mg/dL (7-18); CALCIUM 8.5 mg/dL (8.5-10.1); CHLORIDE 107 mmol/L (98-107); CO2 23 mmol/L (21-32); CREATININE 2.6 mg/dL (0.6-1.3); GLUCOSE 147 mg/dL (70-99); POTASSIUM 4.5 mmol/L (3.5-5.1); SODIUM 143 mmol/L (136-145); TROPONIN-I LEVEL <0.06 ng/mL (<0.06)
[2018-12-30 12:23] LABS: ALBUMIN 3.5 g/dL (3.4-5.0); ALKALINE PHOSPHATASE 154 U/L (46-116); LIPASE 62 U/L (73-393); NT-PRO BRAIN NAT PEPTIDE > 35000 pg/mL (<300); SGOT 30 U/L (15-37); SGPT 24 U/L (30-65); TOTAL BILIRUBIN 0.7 mg/dL (<0.1-1.0); TOTAL PROTEIN 6.9 g/dL (6.4-8.2)
[2018-12-30 14:20] VITALS: BP 120/59
[2018-12-30 16:11] VITALS: BP 114/78
[2018-12-30 16:19] VITALS: BP 122/75
[2018-12-30 18:27] VITALS: BP 114/78
[2018-12-30 20:00] VITALS: BP 111/65
[2018-12-31 00:14] VITALS: BP 120/67
[2018-12-31 04:25] VITALS: BP 114/62
[2018-12-31 05:02] LABS: ABSOLUTE EOSINOPHILS 0.1 thou/uL (0.0-0.7); ABSOLUTE LYMPHOCYTES 0.4 thou/uL (0.8-5.3); ABSOLUTE MONOCYTES 0.4 thou/uL (0.0-1.2); BASOPHILS 0.9 %; EOSINOPHILS 2.2 %; HEMATOCRIT 35.6 % (42.0-52.0); HEMOGLOBIN 11.9 gm/dL (14.0-18.0); MCH 30.7 pg (26.0-34.0); MCHC 33.4 g/dL (28.0-37.0); MCV 91.9 fL (80.0-100.0); MONOCYTES 10.4 %; MPV 9.3 fl. (7.2-11.1); NUCLEATED RBCS 0 /100WBC; PLATELET COUNT* 129 thou/uL (150-400); POLYS 75.5 %; RBC 3.87 mil/uL (4.50-6.00); RDW-CV 14.5 % (10.5-14.5)
[2018-12-31 05:15] LABS: CALCIUM 8.5 mg/dL (8.5-10.1); CREATININE 2.5 mg/dL (0.6-1.3); MAGNESIUM 1.8 mg/dL (1.8-2.4); POTASSIUM 4.3 mmol/L (3.5-5.1)
[2018-12-31 08:00] VITALS: BP 116/66
[2018-12-31 12:19] VITALS: BP 105/68
--- NOTE | 2018-12-31 12:29 | EKG ---
[place] [address] ELECTROCARDIOGRAM REPORT Name: OSIEL HUSSEIN Room: [address] IN [facility]#: [id number] Admission: 12/30/18 Attend Phys: Yeison Jung MD Discharge: Date of : 34 Report #: [id number] THIS REPORT FOR: //name// 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 TERRY : 1935 Requested By: Doc Peguero Order Number: [id number] MD: Lionel Ellis Measurements Intervals [place] Rate: 92 P: 55 MO: 181 QRS: 26 QRSD: 100 T: 184 QT: 384 QTc: 476 Interpretive Statements Sinus rhythm Multiple ventricular premature complexes Probable LVH with secondary repol abnrm Compared to ECG 12/13/2018 08:29:04 Ventricular premature complex(es) now present Atrial premature complex(es) no longer present Electronically Signed On 12-31-2018 12:29:25 CDT by Lionel Ellis [email or web address] <ELECTRONICALLY SIGNED> By: Lionel Ellis MD, FACC 12/31/18 1229 1142 1142 Lionel Ellis MD, FACC /EPI
[2018-12-31 15:49] VITALS: BP 109/60
[2018-12-31 20:00] VITALS: BP 104/66
[2019-01-01] VITALS: BP 110/57; BP 146/56
[2019-01-01 04:00] VITALS: BP 117/65
[2019-01-01 05:09] LABS: ABSOLUTE EOSINOPHILS 0.1 thou/uL (0.0-0.7); ABSOLUTE LYMPHOCYTES 0.6 thou/uL (0.8-5.3); ABSOLUTE MONOCYTES 0.5 thou/uL (0.0-1.2); ABSOLUTE NEUTROPHILS 3.9 thou/uL (1.6-8.1); BASOPHILS 0.8 %; EOSINOPHILS 2.4 %; HEMATOCRIT 38.4 % (42.0-52.0); HEMOGLOBIN 12.5 gm/dL (14.0-18.0); LYMPHOCYTES 11.3 %; MCH 29.9 pg (26.0-34.0); MCHC 32.5 g/dL (28.0-37.0); MONOCYTES 9.7 %; MPV 9.1 fl. (7.2-11.1); NUCLEATED RBCS 0 /100WBC; PLATELET COUNT* 161 thou/uL (150-400); POLYS 75.8 %; RBC 4.18 mil/uL (4.50-6.00); RDW-CV 14.5 % (10.5-14.5); WBC 5.1 thou/uL (4.0-11.0)
[2019-01-01 05:39] LABS: CALCIUM 8.5 mg/dL (8.5-10.1); CREATININE 2.6 mg/dL (0.6-1.3); POTASSIUM 3.7 mmol/L (3.5-5.1); TOTAL BILIRUBIN 0.6 mg/dL (<0.1-1.0); TOTAL PROTEIN 5.9 g/dL (6.4-8.2)
[2019-01-01 07:15] VITALS: BP 105/55
[2019-01-01 12:52] VITALS: BP 98/66
[2019-01-01 16:14] VITALS: BP 110/63
[2019-01-01 20:00] VITALS: BP 127/76
[2019-01-02] VITALS: BP 115/69
[2019-01-02 04:00] VITALS: BP 105/62
[2019-01-02 05:00] LABS: APTT 33.4 Seconds (25.0-31.3); INR 1.1; PROTIME 11.4 Seconds (9.20-11.50)
[2019-01-02 07:15] VITALS: BP 131/76
[2019-01-02 11:54] VITALS: BP 111/63
--- NOTE | 2019-01-02 15:01 | 2DMMODE ---
[place] [address] 2 D/M-MODE ECHOCARDIOGRAM Name: OSIEL HUSSEIN Room: [address]#: [id number] Admission: 12/30/18 Attend Phys: Yeison Jung, Discharge: 01/02/19 Date of : 34 Date of Service: 01/02/19 1501 Report #: [id number] THIS REPORT FOR: //name// APPROVED REPORT Study performed: 01/02/2019 11:05:09 EXAM: Comprehensive 2D, Doppler, and color-flow Echocardiogram Patient Location: In-Patient Room #: [facility] Status: routine BSA: 1.75 HR: 86 bpm BP: 118/72 mmHg Rhythm: NSR Other Information Study Quality: Good Indications Congestive Heart Failure Dyspnea Pleural Effusion 2D Dimensions IVSd: 11.57 (7-11mm) LVOT Diam: 20.58 (18-24mm) LVDd: 52.59 mm PWd: 9.79 (7-11mm) Ascending Ao: 33.82 (22-36mm) LVDs: 47.48 (25-40mm) Aortic Root: 32.00 mm Volumes Left Atrial Volume (Systole) LA ESV Index: 55.10 mL/m2 Aortic Valve AoV Peak Tyrone.: 1.30 m/s AO Peak Gr.: 6.80 mmHg LVOT Max P.29 mmHg AO Mean Gr.: 4.04 mmHg LVOT Mean P.58 mmHg LVOT Max V: 0.57 m/s AO V2 VTI: 20.20 cm LVOT Mean V: 0.34 m/s APRIL (VTI): 1.57 cm2 LVOT V1 VTI: 9.51 cm AI Power: 3.83 m/s2 AI PHT: 272.14 [place] [address] 2 D/M-MODE ECHOCARDIOGRAM Name: OSIEL HUSSEIN Room: [address]#: [id number] Admission: 12/30/18 Attend Phys: Yeison Jung, Discharge: 01/02/19 Date of : 34 Date of Service: 01/02/19 1501 Report #: [id number] Mitral Valve E/A Ratio: 2.58 MV Decel. Time: 110.50 ms MV E Max Tyrone.: 0.97 m/s MV PHT: 32.05 ms MVA (PHT): 6.87 cm2 TDI E/Lateral E': 16.17 E/Medial E': 19.40 Medial E' Tyrone.: 0.05 m/s Lateral E' Tyrone.: 0.06 m/s Pulmonary Valve PV Peak Tyrone.: 0.57 m/s PV Peak Gr.: 1.28 mmHg Tricuspid Valve RAP Estimate: 5.00 mmHg TR Peak Gr.: 27.96 mmHg RVSP: 33.00 mmHg PA Pressure: 33.00 mmHg Left Ventricle Left ventricle is mildly dilated. There is severe global hypokinesis of the left ventricle. There is normal left ventricular wall thickness. Left ventricular systolic function is severely decreased. LVEF is 20-25%. Grade IV - fixed restrictive diastolic dysfunction. Right Ventricle Right ventricle is dilated. The right ventricular systolic function is normal. Atria Left atrium is severely dilated. Right atrium is dilated. Aortic Valve Moderate aortic valve sclerosis. Moderate aortic regurgitation. Mild aortic stenosis. Mitral Valve The mitral valve is normal in structure. Moderate mitral regurgitation. No evidence of mitral valve stenosis. Tricuspid Valve The tricuspid valve is normal in structure. Mild tricuspid regurgitation. estimate pa pressure 40 [place] [address] 2 D/M-MODE ECHOCARDIOGRAM Name: OSIEL HUSSEIN Room: [address]#: [id number] Admission: 12/30/18 Attend Phys: Yeison Jung, Discharge: 01/02/19 Date of : 34 Date of Service: 01/02/19 1501 Report #: [id number] Pulmonic Valve The pulmonary valve is normal in structure. Mild pulmonic regurgitation. Great Vessels The aortic root is normal in size. IVC is normal in size and collapses >50% with inspiration. Pericardium There is no pericardial effusion. <Conclusion> LVEF is 20-25%. Left atrium is severely dilated. Mild aortic stenosis. Moderate aortic regurgitation. Moderate mitral regurgitation. Mild tricuspid regurgitation. estimate pa pressure 40 mm Hg <ELECTRONICALLY SIGNED> By: Live Fitzgerald MD, FACC 01/02/19 1501 1501 150 Live Fitzgerald MD, FACC /INF
== END 2019-01-02 13:54 | disposition home health service (06) | DRG 393 ==
LOC: M.ERS 11:35 → M.2W 12:59 → M.TBA-ER 12:59 → M.2W 14:28
PROVIDERS: Emergency Medicine; ADMIT Internal Medicine
PROC: 0W9930Z Drainage of Right Pleural Cavity with Drainage Device, Percutaneous Approach (ICD-10-PCS; principal; 2019-01-02)
DX: K52.1 Toxic gastroenteritis and colitis (principal); I50.23 Acute on chronic systolic (congestive) heart failure; E43 Unspecified severe protein-calorie malnutrition; J96.20 Acute and chronic respiratory failure, unspecified whether with hypoxia or hypercapnia; I13.0 Hypertensive heart and chronic kidney disease with heart failure and stage 1 through stage 4 chronic kidney disease, or unspecified chronic kidney disease; N18.4 Chronic kidney disease, stage 4 (severe); J91.8 Pleural effusion in other conditions classified elsewhere; K21.9 Gastro-esophageal reflux disease without esophagitis; E78.5 Hyperlipidemia, unspecified; E11.40 Type 2 diabetes mellitus with diabetic neuropathy, unspecified; E11.649 Type 2 diabetes mellitus with hypoglycemia without coma; I25.5 Ischemic cardiomyopathy; E11.22 Type 2 diabetes mellitus with diabetic chronic kidney disease; I25.10 Atherosclerotic heart disease of native coronary artery without angina pectoris; F32.9 Major depressive disorder, single episode, unspecified; T46.3X5A Adverse effect of coronary vasodilators, initial encounter; Y92.89 Other specified places as the place of occurrence of the external cause; Z95.1 Presence of aortocoronary bypass graft; Z86.73 Personal history of transient ischemic attack (TIA), and cerebral infarction without residual deficits; Z87.891 Personal history of nicotine dependence; Z85.07 Personal history of malignant neoplasm of pancreas; Z91.81 History of falling; Z87.81 Personal history of (healed) traumatic fracture; Z79.51 Long term (current) use of inhaled steroids; Z79.82 Long term (current) use of aspirin; Z79.4 Long term (current) use of insulin; Z79.899 Other long term (current) drug therapy; Z88.8 Allergy status to other drugs, medicaments and biological substances; Z91.013 Allergy to seafood; Z82.49 Family history of ischemic heart disease and other diseases of the circulatory system

== ENCOUNTER 2019-01-05 13:12 | Inpatient (IN) | payer MEDICARE, OTHER ==
[~2019-01-05] VITALS: Ht 165.1 cm; Wt 73.3 kg
--- NOTE | ~2019-01-05 | CON ---
[address] [address] CONSULTATION Name: OSIEL HUSSEIN Room: [address] IN ..#: [id number] Admission: 01/05/19 Attend Phys: Yeison Jung MD Discharge: Date of : 34 Report #: [id number] THIS REPORT FOR: //name// CC: Yeison Chase DATE OF SERVICE: 01/06/2019 ADDENDUM Consult number is [id number]. I have personally seen and examined the patient and reviewed labs and imaging studies. The patient with history of tachygastria and diarrhea who has postprandial urgency and loose stool. He also has had history of pancreatic cancer with CBD stricture and stent placement in the past. Since he has history of tachygastria, we will consider Bentyl initially to use a.c. and at bedtime. If this was not sufficient, I may consider bile sequestering agent on top of Bentyl. We will evaluate the patient tomorrow and make further recommendation. By: 1017 [id number] Rodriguez MD /champ
--- NOTE | ~2019-01-05 | CON ---
[address] [address] CONSULTATION Name: OSIEL HUSSEIN Room: [address] IN [facility].#: [id number] Admission: 01/05/19 Attend Phys: Yeison Jung MD Discharge: Date of : 34 Report #: [id number] THIS REPORT FOR: //name// CC: Yeison Chase DICTATED BY: Alena Ruff [facility] DATE OF SERVICE: 01/06/2019 PRIMARY CARE PHYSICIAN: Dr. Chase. Please note at the time of this dictation, the patient was seen and physically examined by myself. REASON FOR CONSULTATION: Pancreatic cancer, diarrhea and some indigestion. HISTORY OF PRESENT ILLNESS: This is an 83-year-old male who presented to the Emergency Room with increasing lower extremity swelling, testicular swelling and weight gain, and he has been in and out of the hospitals with adjustment of his diuretics off and on. He was last admitted in October at [facility], at which time, he was having some issues with loose stools and early satiety, obtained a gastric emptying test that showed that he had rapid emptying and was to be started on dicyclomine. In looking at his medication list, he has not been on that and he does not recall that medicine at all. He also was having a little bit of indigestion off and on as well and has not been taking his pantoprazole like he should he states. The patient was diagnosed with pancreatic cancer last fall. He has received radiation, with his last treatment being in July of last year. He had issues with obstructive jaundice and a temporary stent was placed. It migrated and had to put a permanent stent back in June of last year for this reason, for a malignant stricture in the CBD. The patient is doing relatively well, except for his issues with his congestive heart failure. PAST MEDICAL HISTORY: Congestive heart failure, chronic kidney disease stage 4, diabetes and pancreatic cancer with obstructive jaundice of the CBD. He has had a stroke, neuropathy and hiatal hernia. He has had a CABG x 5 in 2001. ALLERGIES: NIACIN, SHRIMP AND STATINS. MEDICATIONS: From home, Levemir, Lasix, Singulair, Protonix, , Tylenol, Zoloft, Flonase, metoprolol and nitroglycerin. PAST SURGICAL HISTORY: CABG x 5 and then the CBD stent placed last fall. FAMILY HISTORY: [place] [address] CONSULTATION Name: OSIEL HUSSEIN Room: [address]#: [id number] Admission: 01/05/19 Attend Phys: Yeison Jung MD Discharge: Date of : 34 Report #: [id number] SOCIAL HISTORY: Negative for any alcohol, tobacco or illegal drug use. REVIEW OF SYSTEMS: Twelve-point review of systems is essentially negative, except what is mentioned in the HPI. PHYSICAL EXAMINATION: VITAL SIGNS: Temperature 36.5, pulse 80, respirations 16 and blood pressure 111/64. HEART: Regular rate and rhythm. LUNGS: Diminished with a few bibasilar crackles. ABDOMEN: Soft. Positive bowel sounds in all 4 quadrants, with no masses or tenderness noted. Currently not having any diarrhea. LABORATORY DATA: Hemoglobin is 12, white count 3.3 and platelets 121,000. BUN is 31, creatinine 2.4 with a GFR of 26. PT is 11.4, INR is 1.1. BNP was greater than 35,000. Total bilirubin 0.6, alkaline phosphatase 144, ALT 20 and AST is 30. IMPRESSION: 1. Diarrhea off and on. 2. History of tachygastria. 3. 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 4. Thrombocytopenia. 5. Congestive heart failure. PLAN: 1. We will try Bentyl 10 mg a.c. and at bedtime. 2. We will assess his response to this and instruct that he can take as needed. 3. Further recommendations to be made once Dr. Rodriguez sees the patient later today. Thank you for allowing us to participate in this patient's care. Please do not hesitate to call with any questions in regard to this consult. By: 1107 0031Blake Rodriguez MD /nt
[2019-01-05 13:15] VITALS: BP 126/70
[2019-01-05 13:59] LABS: MCH 30.6 pg (26.0-34.0); MCHC 33.3 g/dL (28.0-37.0); MCV 91.7 fL (80.0-100.0); NUCLEATED RBCS 0 /100WBC; PLATELET COUNT* 149 thou/uL (150-400); RBC 4.26 mil/uL (4.50-6.00); RDW-CV 14.4 % (10.5-14.5); WBC 4.5 thou/uL (4.0-11.0)
[2019-01-05 14:07] LABS: INR 1.1; PROTIME 11.4 Seconds (9.20-11.50)
--- NOTE | 2019-01-05 14:18 | EKG ---
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 TERRY : 1935 Requested By: Taco Parsons Order Number: [id number] MD: Live Glez Measurements Intervals [place] Rate: 80 P: 20 ID: [id number] QRS: 4 QRSD: 110 T: 175 QT: 419 QTc: 484 Interpretive Statements Sinus rhythm Probable LVH with secondary repol abnrm Borderline prolonged QT interval Compared to ECG 12/30/2018 11:42:07 Ventricular premature complex(es) no longer present Electronically Signed On 01-05-2019 14:18:41 CDT by Live Glez [email or web address] <ELECTRONICALLY SIGNED> By: Live Glez MD, [facility] 01/05/19 1418 1332 31 Live Glez MD, [facility] /EPI
[2019-01-05 14:39] LABS: ANION GAP 11 mmol/L (7-16); BUN 32 mg/dL (7-18); CALCIUM 8.2 mg/dL (8.5-10.1); CHLORIDE 104 mmol/L (98-107); CO2 24 mmol/L (21-32); CREATININE 2.4 mg/dL (0.6-1.3); GLUCOSE 207 mg/dL (70-99); POTASSIUM 3.6 mmol/L (3.5-5.1); SODIUM 139 mmol/L (136-145); TROPONIN-I LEVEL <0.06 ng/mL (<0.06)
[2019-01-05 14:40] LABS: ALBUMIN 3.1 g/dL (3.4-5.0); ALKALINE PHOSPHATASE 144 U/L (46-116); NT-PRO BRAIN NAT PEPTIDE > 35000 pg/mL (<300); SGOT 30 U/L (15-37); SGPT 20 U/L (30-65); TOTAL BILIRUBIN 0.6 mg/dL (<0.1-1.0); TOTAL PROTEIN 6.3 g/dL (6.4-8.2)
[2019-01-05 14:58] LABS: ABSOLUTE LYMPHOCYTES 0.4 thou/uL (0.8-5.3); ABSOLUTE MONOCYTES 0.3 thou/uL (0.0-1.2); ABSOLUTE NEUTROPHILS 3.8 thou/uL (1.6-8.1)
[2019-01-05 15:00] LABS: PLATELET ESTIMATE ADEQUATE
[2019-01-05 15:01] LABS: LARGE PLATELETS OCCASIONAL
[2019-01-05 16:18] LABS: URINE BILIRUBIN NEGATIVE (Negative); URINE BLOOD NEGATIVE (Negative); URINE CLARITY CLEAR; URINE COLOR YELLOW; URINE GLUCOSE-RANDOM NEGATIVE (Negative); URINE KETONES NEGATIVE (Negative); URINE LEUKOCYTES-REFLEX NEGATIVE (Negative); URINE NITRITE-REFLEX NEGATIVE (Negative); URINE PROTEIN NEGATIVE (Negative); URINE UROBILINOGEN 0.2 E.U./dl (0.2-1.0)
[2019-01-05 16:23] VITALS: BP 120/51
[2019-01-05 16:40] VITALS: BP 138/70
--- NOTE | 2019-01-05 18:20 | NUR ---
PT ARRIVED TO ROOM 223 FROM ER AT 1640, RECIEVED REPORT FROM PRUDENCIO UNGER. PT A/O X4, C/O SOME LEFT LEG PAIN, VSS, PT 98% ON RA. PT STATES HE HAS FELF MORE SWOLLEN SINCE LEAVING THE HOSPITAL LAST WEEK. PTS ADMISSION HX AND ASSESMENT DONE CHARTED. PT UP WITH ASSIST. USES CALL LIGHT APPROPRIATLY. WILL CONINTUE TO MONITOR.
[2019-01-05 20:00] VITALS: BP 128/71
[2019-01-06] VITALS: BP 104/53
--- NOTE | 2019-01-06 03:52 | NUR ---
PT ALERT ORIENTED. UP WITH WALKER AND STAND BY ASSIST. DENIES PAIN. TELEMETRY SHOWS SR.
[2019-01-06 04:35] VITALS: BP 116/65
[2019-01-06 05:17] LABS: ABSOLUTE EOSINOPHILS 0.1 thou/uL (0.0-0.7); ABSOLUTE LYMPHOCYTES 0.4 thou/uL (0.8-5.3); ABSOLUTE MONOCYTES 0.4 thou/uL (0.0-1.2); ABSOLUTE NEUTROPHILS 2.9 thou/uL (1.6-8.1); BASOPHILS 0.8 %; EOSINOPHILS 2.9 %; LYMPHOCYTES 10.6 %; MCH 30.5 pg (26.0-34.0); MCHC 33.4 g/dL (28.0-37.0); MCV 91.6 fL (80.0-100.0); MONOCYTES 10.4 %; NUCLEATED RBCS 0 /100WBC; PLATELET COUNT* 121 thou/uL (150-400); POLYS 75.3 %; RBC 3.93 mil/uL (4.50-6.00); RDW-CV 14.6 % (10.5-14.5); WBC 3.9 thou/uL (4.0-11.0)
[2019-01-06 05:24] LABS: CALCIUM 8.5 mg/dL (8.5-10.1); CREATININE 2.4 mg/dL (0.6-1.3); POTASSIUM 3.9 mmol/L (3.5-5.1)
[2019-01-06 08:00] VITALS: BP 111/64
--- NOTE | 2019-01-06 10:57 | NUR ---
Pt is A&O. Pt just dc from this hospital 2 days ago with [facility] and [facility] Palliative Care, Pt states that HH has been out twice, but PC had not yet been out to assess, Pt wants both resumed at dc. Pt stated that his dtr has been staying with him and assisting as needed. Pt states that he thinks he will be discharged to home today, resumption orders will need to be faxed to [facility] at [phone] and PC will need to be updated at [phone]. Pt is aware of his failing health and mentioned "if I , I want just want to be able to at home." Following.
--- NOTE | 2019-01-06 15:52 | NUR ---
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 ASSESSMENT PERFORMED IN THE AM. LOWER EXTREMITIES PITTING EDEMA NOTICED +3. PT LEGS ELEVATED. LUNG SOUND CLEAR. PT ON RA AND SATURATION IS ABOVE 95%. PT ABLE TO GET UP AD LIDIA. LASIX GIVEN. I&O BEING MONITORED. GI CONSULTED. WILL CONTINUE TO MONITOR PT.
[2019-01-06 16:09] VITALS: BP 127/70
[2019-01-06 20:10] VITALS: BP 126/70
[2019-01-07] VITALS (7 sets, daily range): BP systolic 107–126; BP diastolic 63–77
--- NOTE | 2019-01-07 05:40 | NUR ---
PT CARE ASSUMED AT 1930. SAT MAINTAINED IN RA. ALERT AND ORIENTED X4. CALL LIGHT WITHIN REACH AND BED IN LOW POSITION. DENIES PAIN AND SOB. HOURLY ROUNDING DONE FOR PT SAFETY.
--- NOTE | 2019-01-07 11:02 | NUR ---
assumed pt care report received from nurse pt is aox4 pleasant. 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 pt moved out of bed to chair. ate breakfast. lower extremities maintained elevated due to edema. pt still has edema pitting +3 on lower extremities bilaterally. pt is currently sitting in chair. lasix has been given. will contiue to monitor
[2019-01-08 04:00] VITALS: BP 112/62
--- NOTE | 2019-01-08 05:00 | NUR ---
PT SLEPT MOST OF SHIFT. ASSESSMENT DOCUMENTED. MEDS GIVEN PER E-MAR. IV PATENT. TELE MONITOR READING SR. PT REPORTS DECREASE IN FREQUENCY OF STOOLS. NO REPORTS OF PAIN OR NAUSEA. WILL CONTINUE WITH PLAN OF CARE.
[2019-01-08 05:17] LABS: ABSOLUTE EOSINOPHILS 0.1 thou/uL (0.0-0.7); ABSOLUTE LYMPHOCYTES 0.4 thou/uL (0.8-5.3); ABSOLUTE MONOCYTES 0.3 thou/uL (0.0-1.2); BASOPHILS 0.5 %; EOSINOPHILS 2.4 %; HEMATOCRIT 34.4 % (42.0-52.0); HEMOGLOBIN 11.5 gm/dL (14.0-18.0); MCH 30.5 pg (26.0-34.0); MCHC 33.4 g/dL (28.0-37.0); MCV 91.2 fL (80.0-100.0); MONOCYTES 8.9 %; MPV 9.6 fl. (7.2-11.1); NUCLEATED RBCS 0 /100WBC; PLATELET COUNT* 125 thou/uL (150-400); POLYS 78.2 %; RBC 3.77 mil/uL (4.50-6.00); RDW-CV 14.5 % (10.5-14.5); WBC 3.9 thou/uL (4.0-11.0)
[2019-01-08 05:20] LABS: CALCIUM 8.1 mg/dL (8.5-10.1); CREATININE 2.3 mg/dL (0.6-1.3); POTASSIUM 3.3 mmol/L (3.5-5.1)
[2019-01-08 08:00] VITALS: BP 112/65
--- NOTE | 2019-01-08 10:19 | NUR ---
ASSUMED PT CARE REPORT RECEIVED FROM NURSE PT IS AOX4 SR ON AFFILIATE MANAGER ON RA. WALK INDEPENDENTLY TO RESTROOM. VSS. DISCHARGE ORDER RECEIVED . PT AWAITING FOR RIDE. PT IS GOING TO BE DC HOME TO SELF CARE. WILL CONTINUE MONITORING
[2019-01-08] MEDS ORDERED: BENTYL 10 MG CA10 M1 PO (10:21)
[2019-01-08 10:25] VITALS: BP 112/65
--- NOTE | 2019-01-08 11:21 | NUR ---
PT LEFT FLOOR ACCOMPANIED BY DAUGHTER AND NURSING STAFF IN WHEELCHAIR.
== END 2019-01-08 11:15 | disposition home or self-care (01) | DRG 291 ==
LOC: M.ERS 13:12 → M.TBA-ER 15:25 → M.2W 15:25
PROVIDERS: Family Medicine; ADMIT Internal Medicine
DX: I13.0 Hypertensive heart and chronic kidney disease with heart failure and stage 1 through stage 4 chronic kidney disease, or unspecified chronic kidney disease (principal); I50.43 Acute on chronic combined systolic (congestive) and diastolic (congestive) heart failure; J96.20 Acute and chronic respiratory failure, unspecified whether with hypoxia or hypercapnia; N18.4 Chronic kidney disease, stage 4 (severe); R18.8 Other ascites; K44.9 Diaphragmatic hernia without obstruction or gangrene; D69.6 Thrombocytopenia, unspecified; R19.7 Diarrhea, unspecified; K21.9 Gastro-esophageal reflux disease without esophagitis; E78.5 Hyperlipidemia, unspecified; E11.22 Type 2 diabetes mellitus with diabetic chronic kidney disease; E11.40 Type 2 diabetes mellitus with diabetic neuropathy, unspecified; F32.9 Major depressive disorder, single episode, unspecified; Z86.73 Personal history of transient ischemic attack (TIA), and cerebral infarction without residual deficits; Z85.07 Personal history of malignant neoplasm of pancreas; Z79.82 Long term (current) use of aspirin; Z79.84 Long term (current) use of oral hypoglycemic drugs; Z88.6 Allergy status to analgesic agent; Z88.8 Allergy status to other drugs, medicaments and biological substances; Z95.1 Presence of aortocoronary bypass graft

== ENCOUNTER 2019-02-06 13:29 | Emergency (ER) | payer MEDICARE, OTHER ==
[~2019-02-06] VITALS: Ht 165.1 cm; Wt 67.6 kg
[~2019-02-06 13:29] MED LIST changes: +BENTYL 10 MG CA10 M1 PO
[2019-02-06 14:01] LABS: ABSOLUTE LYMPHOCYTES 0.6 thou/uL (0.8-5.3); ABSOLUTE MONOCYTES 0.6 thou/uL (0.0-1.2); ABSOLUTE NEUTROPHILS 5.1 thou/uL (1.6-8.1); BASOPHILS 0.7 %; EOSINOPHILS 0.6 %; HEMATOCRIT 42.5 % (42.0-52.0); HEMOGLOBIN 13.8 gm/dL (14.0-18.0); LYMPHOCYTES 9.3 %; MCH 29.9 pg (26.0-34.0); MCHC 32.5 g/dL (28.0-37.0); MCV 91.8 fL (80.0-100.0); MONOCYTES 9.1 %; MPV 9.8 fl. (7.2-11.1); NUCLEATED RBCS 0 /100WBC; PLATELET COUNT* 162 thou/uL (150-400); POLYS 80.3 %; RBC 4.63 mil/uL (4.50-6.00); RDW-CV 16.1 % (10.5-14.5); WBC 6.3 thou/uL (4.0-11.0)
[2019-02-06] MEDS ORDERED: ONDANSETRON HCL4 M2 PO (14:01)
[2019-02-06 14:10] LABS: APTT 29.9 Seconds (25.0-31.3); INR 1.2
[2019-02-06 14:15] LABS: ANION GAP 15 mmol/L (7-16); BUN 39 mg/dL (7-18); CALCIUM 7.9 mg/dL (8.5-10.1); CHLORIDE 105 mmol/L (98-107); CO2 22 mmol/L (21-32); CREATININE 2.9 mg/dL (0.6-1.3); GLUCOSE 136 mg/dL (70-99); SODIUM 142 mmol/L (136-145)
[2019-02-06 14:18] LABS: POTASSIUM 2.9 mmol/L (3.5-5.1)
[2019-02-06 14:25] LABS: ALBUMIN 3.2 g/dL (3.4-5.0); ALKALINE PHOSPHATASE 154 U/L (46-116); NT-PRO BRAIN NAT PEPTIDE > 35000 pg/mL (<300); SGOT 25 U/L (15-37); SGPT 20 U/L (30-65); TOTAL BILIRUBIN 0.7 mg/dL (<0.1-1.0); TOTAL PROTEIN 6.4 g/dL (6.4-8.2); TROPONIN-I LEVEL <0.06 ng/mL (<0.06)
--- NOTE | 2019-02-06 17:11 | EKG ---
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1935 Requested By: Taco Parsons Order Number: [id number] MD: Juan Stewart Measurements Intervals [place] Rate: 86 P: 20 MA: 134 QRS: 33 QRSD: 111 T: 179 QT: 402 QTc: 481 Interpretive Statements Sinus rhythm Probable left atrial enlargement LVH with secondary repolarization abnormality Borderline prolonged QT interval Compared to ECG 01/05/2019 13:32:19 No significant changes Electronically Signed On 02-06-2019 17:11:01 CDT by Juan Stewart [email or web address] <ELECTRONICALLY SIGNED> By: Juan Stewart MD, [facility] 02/06/19 1711 1402 140 Juan Stewart MD, FACC /EPI
[2019-02-06 17:30] VITALS: BP 107/72
== END 2019-02-06 17:30 | disposition home or self-care (01) ==
LOC: M.ERS 13:29
PROVIDERS: Family Medicine
DX: J90 Pleural effusion, not elsewhere classified (principal); R06.00 Dyspnea, unspecified; K21.9 Gastro-esophageal reflux disease without esophagitis; E78.5 Hyperlipidemia, unspecified; E11.40 Type 2 diabetes mellitus with diabetic neuropathy, unspecified; F32.9 Major depressive disorder, single episode, unspecified; I11.0 Hypertensive heart disease with heart failure; I50.9 Heart failure, unspecified; Z88.1 Allergy status to other antibiotic agents; Z86.73 Personal history of transient ischemic attack (TIA), and cerebral infarction without residual deficits; Z88.8 Allergy status to other drugs, medicaments and biological substances; Z91.013 Allergy to seafood

== ENCOUNTER 2019-02-08 13:22 | Inpatient (IN) | payer MEDICARE, OTHER ==
[~2019-02-08] VITALS: Ht 165.1 cm; Wt 71.2 kg
[~2019-02-08 13:22] MED LIST changes: +ONDANSETRON HCL4 M2 PO
[2019-02-08 13:27] VITALS: BP 103/60
[2019-02-08 14:03] LABS: HEMATOCRIT 42.1 % (42.0-52.0); HEMOGLOBIN 13.8 gm/dL (14.0-18.0); MCH 29.9 pg (26.0-34.0); MCHC 32.7 g/dL (28.0-37.0); MCV 91.5 fL (80.0-100.0); NUCLEATED RBCS 0 /100WBC; PLATELET COUNT* 147 thou/uL (150-400); RBC 4.61 mil/uL (4.50-6.00); RDW-CV 16.5 % (10.5-14.5); WBC 6.7 thou/uL (4.0-11.0)
[2019-02-08 14:12] LABS: APTT 33.6 Seconds (25.0-31.3); INR 1.3
[2019-02-08 14:15] LABS: ANION GAP 15 mmol/L (7-16); BUN 45 mg/dL (7-18); CALCIUM 7.9 mg/dL (8.5-10.1); CHLORIDE 104 mmol/L (98-107); CO2 20 mmol/L (21-32); GLUCOSE 231 mg/dL (70-99); POTASSIUM 3.4 mmol/L (3.5-5.1); SODIUM 139 mmol/L (136-145)
[2019-02-08 14:24] LABS: ALBUMIN 2.8 g/dL (3.4-5.0); ALKALINE PHOSPHATASE 142 U/L (46-116); NT-PRO BRAIN NAT PEPTIDE > 35000 pg/mL (<300); SGOT 25 U/L (15-37); SGPT 21 U/L (30-65); TROPONIN-I LEVEL 0.14 ng/mL (<0.06)
[2019-02-08 14:56] LABS: ABSOLUTE LYMPHOCYTES 0.3 thou/uL (0.8-5.3); ABSOLUTE MONOCYTES 0.5 thou/uL (0.0-1.2); ABSOLUTE NEUTROPHILS 5.9 thou/uL (1.6-8.1)
[2019-02-08 14:58] LABS: PLATELET ESTIMATE ADEQUATE
--- NOTE | 2019-02-08 15:42 | EKG ---
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[place] : 1935 Requested By: Taco Parsons Order Number: [id number] MD: Live Fitzgerald Measurements Intervals [place] Rate: 89 P: 106 MD: 224 QRS: -18 QRSD: 107 T: 147 QT: 374 QTc: 456 Interpretive Statements Sinus rhythm nonspecific st changes Multiple ventricular premature complexes Prolonged MD interval Anterior Q waves, possibly due to LVH Compared to ECG 02/06/2019 14:03:49 Ventricular premature complex(es) now present First degree AV block now present Electronically Signed On 02-08-2019 15:42:34 CDT by Live Fitzgerald [email or web address] <ELECTRONICALLY SIGNED> By: Live Fitzgerald MD, [facility] 02/08/19 1542 1333 1333 Live Fitzgerald MD, [facility] /EPI
[2019-02-08 16:55] VITALS: BP 111/66
[2019-02-08 17:45] VITALS: BP 119/68
[2019-02-08] MEDS ORDERED: LEVEMIR SUBQ (19:02)
[2019-02-08] MEDS ORDERED: TRADJENTA5 MG PO (19:04)
--- NOTE | 2019-02-08 19:06 | NUR ---
PATIENT PRESENTED TO 208 PER CART THIS EVENING WITH A RECENT HX OF SOA. PATIENT IS ALERT AND ORIENTED ON ARRIVAL. HE C/O MILD TO MODERATE PAIN TO HIS LEFT HIP AND LEG. PATIENT IS ON 02 AT 2 LITERS NC. O2 SATS STABLE AT 100%. PLACED ON TELE MONITOR. TELE SHOWS NSR. PATIENT COLOR SOMEWHAT GRAYISH BUT IS DOES NOT APPEAR SOA. DIET ORDERED AND PATIENT SETTLED INTO BED. PATIENT HAS 3+ LE EDEMA BILATERALLY PATIENT FEET ELEVATED WITH PILLOWS. REDNESS NOTTED TO COCCYX. WILL REPORT OFF TO PROVIDER NETWORK MGR. MEDICATION LIST RECONCILED. FALL CONTRACT SIGNED. PATIENT GIVEN DINNER. FAMILY MEMBERS ARE AT THE BEDSIDE. PATIENT EXPRESSES WISH TO CONTINUE DNR STATUS.
[2019-02-08 20:00] VITALS: BP 101/60
[2019-02-08 23:54] VITALS: BP 94/55
[2019-02-09 04:00] VITALS: BP 95/59
--- NOTE | 2019-02-09 04:55 | NUR ---
Patient progressing towards goals: O2 saturation >92% on 2l o2 nc. BP soft 90's/50's but patient is asymptomatic. Patient denies pain and discomfort. Critically elevated troponin reported to physician. No new orders received due to patient and families wish to continue with hospice. Edematous legs elevated on pillow throughout shift. Patient's brief and shorts removed. Healing pressure ulcer noted to coccyx, pictures taken and placed in chart. Patient able to reposition self but requires reminders. Call light within reach.
[2019-02-09 05:13] LABS: CALCIUM 7.9 mg/dL (8.5-10.1); POTASSIUM 3.3 mmol/L (3.5-5.1)
[2019-02-09 09:30] VITALS: BP 102/61
[2019-02-09 11:47] VITALS: BP 101/63
--- NOTE | 2019-02-09 13:23 | NUR ---
Pt is A&O. Resides at home alone, 2 supportive dtrs that stay with Pt as needed. Pt states that his health has continued to decline since his most recent hospital dc. Pt has a walker and cane at home for mobility. Current [facility] and [facility] Palliative Care. Pt hopes that he is able to go to [facility] at ma. CM faxed referral to hospice house, nurse to be here around 2pm to assess. Updated nurse and Dr. Nicholson.
--- NOTE | 2019-02-09 14:48 | NUR ---
ASSUMED PT CARE AT 0700 PT IS ALERT AND ORIENTED X 4 PT DENIES PAIN OR SOA ON 2L/NC, PT IS UP WITH SBA PT IS NOT A FALL RISK, PT IS ALERT AND ORIENTED X 4 HOSPICE SAW PT WHO MAY DISCHARGE TO HOME TOMORROW, WILL CONTINUE TO MONITOR
[2019-02-09 15:49] VITALS: BP 95/56
--- NOTE | 2019-02-09 17:37 | NUR ---
WOUND NURSE: PATIENT SEEN FOR SKIN ASSESSMENT TO [facility]. THIS IS A HEALED PRESSURE CONTAINING A HEALTHY PINK SCAR. PATIENT INSTRUCTED ON FREQUENT REPOSITIONING AND NUTRIENT DENSE DIET TO PREVENT RECURRENCE. PATIENT STATED HE UNDERSTOOD.
[2019-02-09 19:50] VITALS: BP 100/63; BP 84/48
[2019-02-10 00:58] VITALS: BP 103/63
[2019-02-10 04:13] VITALS: BP 102/58
--- NOTE | 2019-02-10 05:45 | NUR ---
Patient partially progressing towards goals: O2 saturation maintained >92% on 1L o2 nc. Patient unable to receive Lasix due to soft BP. Patient may possibly discharge to [facility] with hospice today. Call light within reach.
[2019-02-10 09:00] VITALS: BP 96/58
--- NOTE | 2019-02-10 10:32 | NUR ---
ASSUMED PT CARE AT 0700 PT IS ALERT AND ORIENTED X 4 PT DENIES PAIN OR SOA ON RA, PT BLOOD PRESSURE LOW SPOKE WITH PHYSICIAN REGARDING PT LASIX WHICH PHYSICIAN CLARIFIED TO GIVE PT WHICH THIS NURSE GAVE, PT IS UP WITH SBA PT IS NOT A FALL RISK, PT MAY DISCHARGE TO HOSPICE FACILITY AWAITING PHYSICIAN AUTHORIZATION TO DISCHARGE PT, PT IS ST ON THE MONITOR, WILL CONTINUE TO MONITOR
[2019-02-10] MEDS ORDERED: LORAZEPAM 22 MG/1 ML SUBLING (10:45)
[2019-02-10] MEDS ORDERED: CEFDINIR300 MG PO (10:45)
[2019-02-10] MEDS ORDERED: MSL20MG/ML PO ×2 (10:45→11:45)
[2019-02-10 11:53] VITALS: BP 102/61
[2019-02-10] MEDS ORDERED: IPRAT-ALBUT 0.5-3 ML INH ×2 (11:57→11:58)
[2019-02-10 11:59] VITALS: BP 102/61
--- NOTE | 2019-02-10 12:42 | NUR ---
CM confirmed w/pt that he wanted to transfer to [facility]. pt signed DNR. family requested ambulance transportation. cm expalined to family this form of transportation may not be covered by insurance and recommended using [facility]. family wants ambulance and stated they would pay for it out of pocket need be. cm faxed facesheet and pt transfer form to [phone]. Also, called to confirm receipt [phone]. Transportation scheduled for today at 1300. pt and his daughters have been notified of transfer date and time. CM left VM for Karen at [facility] of pickup time [phone]. RN notifed of transportation crab picker time & where to call report. RN in agreement.
--- NOTE | 2019-02-13 10:07 | H ---
[address] [address] HISTORY AND PHYSICAL Name: OSIEL HUSSEIN Room: [address] IN M.R.#: [id number] Admission: 02/08/19 Attend Phys: Girish Aagrwal Discharge: 02/10/19 Date of : 33 Report #: [id number] THIS REPORT FOR: //name// CC: Patti Chase DATE OF SERVICE: 02/08/2019 CHIEF COMPLAINT: Shortness of breath. HISTORY OF PRESENT ILLNESS: The patient is an 83-year-old gentleman who does have a history of congestive heart failure with cardiomyopathy with an EF of 25-30%, who presented to us here for shortness of breath. The patient was just recently seen about 2 days ago and noted to have pleural effusion. He had a thoracentesis and was sent home. He requested to be sent home then. He has been short of breath for the last few days and finally came in today as a home health nurse recommended for him to come in. He continued to have shortness of breath and occasional chest pain. 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 He was told by Dr. Glez that they cannot do anything for him anymore. He was in the process of trying to see if he can be on hospice. Palliative care was supposed to see him today, but this home health nurse sent him to the Emergency Room instead. Family is present at the bedside. PAST MEDICAL HISTORY: Congestive heart failure with cardiomyopathy with an EF of 25-30% on last echocardiogram, GERD, hypertension, hyperlipidemia, CAD with 5-vessel CABG and multiple catheterizations in the past, neuropathy, bone marrow biopsy. He has history of pancreatic cancer, status post stent placement, diabetes, depression, and stroke. PAST SURGICAL HISTORY: Includes bone marrow biopsy, CABG, feeding tube, surgery of his wrist, stent placement of his pancreatic duct, thoracentesis. CURRENT MEDICATIONS: Singulair, pantoprazole, aspirin, Tylenol, sertraline, fluticasone, nitroglycerin, levocetirizine, Lasix, metoprolol, dicyclomine and Zofran. ALLERGIES: NIACIN, SIMVASTATIN. FAMILY HISTORY: Reviewed. SOCIAL HISTORY: The patient lives by himself. His of congestive heart failure and was on hospice then. Denies any smoking, alcohol or drug use. REVIEW OF SYSTEMS: The patient does have some subjective fever at home and a little bit of cough and shortness of breath. No nausea, no vomiting and does have some mild abdominal pain ever since he had [place] [address] HISTORY AND PHYSICAL Name: OSIEL HUSSEIN Room: [address] IN ..#: [id number] Admission: 02/08/19 Attend Phys: Girish Agarwal Discharge: 02/10/19 Date of : 33 Report #: [id number] Denies any dysuria. He has been short of breath and very weak. No confusion. A 12-point review of system unremarkable as I mentioned above. PHYSICAL EXAMINATION: VITAL SIGNS: Temperature is 36.6, heart rate of 88, respiratory rate 24, blood pressure is 107/64, 94% on 2 liters nasal cannula. GENERAL: The patient is alert. He is oriented x 3. He is in mild respiratory distress. HEENT: Normocephalic, atraumatic. Nares patent. Clear pharynx. NECK: Supple. No lymphadenopathy. CARDIOVASCULAR: Normal rate, regular rhythm. No murmurs noted. RESPIRATORY: He does have diminished breath sounds on exam. GASTROINTESTINAL: Abdomen is soft, nontender, nondistended. Good bowel sounds. No organomegaly. GENITOURINARY: Deferred. MUSCULOSKELETAL: Good strength. NEUROLOGIC: Grossly normal. PSYCHIATRIC: The patient is calm and cooperative. LABORATORY DATA: Reviewed and CBC showed a WBC of 6.7, hemoglobin 13.8, platelet is 147. Coags 1. INR is 1.3. Chemistry showed sodium was 139, potassium is 3.4, chloride is 104, carbon dioxide is 20, BUN is 45, creatinine is 3, GFR is 20, glucose 231, calcium is 7.9, total bilirubin is 1, lactic acid 2.8, calcium is 7.9, total bilirubin is 1, ALT is 25 days, AST is 21, alkaline phosphatase is 142. Troponin is 0.44. IMAGING STUDIES: Chest x-ray showed resolution in the right pleural effusion following thoracentesis with a patchy pneumonia, atelectasis in the right lower lung. IMPRESSION: The patient is an 83-year-old gentleman admitted in the hospital for: 1. Shortness of breath likely secondary to acute systolic congestive heart failure and possible developing early pneumonia. 2. Right lower lobe pneumonia. 3. Cardiomyopathy. 4. History of pancreatic cancer, status post pancreatic duct stent placement. 5. Recent pleural effusion, status post thoracentesis. 6. History of stroke. 7. History of diabetes. 8. Depression. 9. Gastroesophageal reflux disease. 10. Hypertension. 11. Hyperlipidemia. 12. Neuropathy. PLAN: The patient will be admitted. I had a long discussion with him and the family and for his CHF he agrees to be on hospice. We will go ahead and continue to diurese him. I will switch his antibiotics to p.o. We will hold off aspirin. Cardiology does not need to see as pt has decided to go on hospice. Unfortunately, lives by himself, so he may need to transition to a fdc and hoping that he can go to [facility] for hosp[facility]. We will put him on nebulizer treatment. We will put him [place] [address] HISTORY AND PHYSICAL Name: OSIEL HUSSEIN Room: [address]#: [id number] Admission: 02/08/19 Attend Phys: Girish Agarwal Discharge: 02/10/19 Date of : 33 Report #: [id number] diabetes and resume the rest of his medications. Discussed with the patient regarding code status and he is a do not resuscitate. <ELECTRONICALLY SIGNED> By: Patti Luna MD 02/13/19 1007 1654 [id number] Luna MD /[facility]
== END 2019-02-10 13:00 | disposition hospice, home (50) | DRG 291 ==
LOC: M.ERS 13:22 → M.2W 14:56 → M.TBA-ER 14:56 → M.2W 17:12
PROVIDERS: Family Medicine; ADMIT Internal Medicine
DX: I11.0 Hypertensive heart disease with heart failure (principal); I50.21 Acute systolic (congestive) heart failure; J18.1 Lobar pneumonia, unspecified organism; I42.9 Cardiomyopathy, unspecified; K21.9 Gastro-esophageal reflux disease without esophagitis; E78.5 Hyperlipidemia, unspecified; E11.40 Type 2 diabetes mellitus with diabetic neuropathy, unspecified; I25.10 Atherosclerotic heart disease of native coronary artery without angina pectoris; F32.9 Major depressive disorder, single episode, unspecified; Z86.73 Personal history of transient ischemic attack (TIA), and cerebral infarction without residual deficits; Z95.1 Presence of aortocoronary bypass graft; Z85.07 Personal history of malignant neoplasm of pancreas; Z79.82 Long term (current) use of aspirin; Z79.84 Long term (current) use of oral hypoglycemic drugs; Z79.899 Other long term (current) drug therapy; Z88.8 Allergy status to other drugs, medicaments and biological substances; Z91.013 Allergy to seafood